=== PATIENT | male | born 1945 | race Caucasian/White ===

== ENCOUNTER 2018-07-21 11:25 | Inpatient (IN) ==
--- NOTE | 2018-07-17 09:15 | Anesthesiology Consultation ---
Date of Service July 17, 2018 Assessment & Plan (1) Encounter for pre-operative examination: Cardio: 12/2017: aware of possible ? retained suture vs. sternal wire exposed at the inferior aspect of his incision.. referred for further evaluation (reason for upcoming procedure). F/U in 6 months recommended. Per cardio, ECHO done 12/2017 (S/P MVR 11/2017) and stress test 08/2017-awaiting reports (Dr. Arzola). History Surgery Operation Date: 07/21/18 11:40 Proposed Procedures p Sternal Wound Debridement, Removal Sternal Wire, Closure with Antibiotic Aishwarya - Darius Saul MD, FACS Height/Weight Height: 5 ft 5.5 in Weight: 81.647 kg Allergies Allergy/AdvReac Type Severity Reaction Status Date / Time niacin Allergy Mild Flushing Verified 07/10/18 13:29 Medications Home Medications Medication Instructions Recorded Confirmed Last Taken aspirin 325 mg tablet 325 mg PO QAM 06/18/18 07/10/18 Unknown atorvastatin 40 mg tablet 40 mg PO QAM 06/18/18 07/10/18 Unknown carvedilol 3.125 mg tablet 3.125 mg PO BID tab 06/18/18 07/10/18 Unknown citalopram 20 mg tablet 20 mg PO QAM 06/18/18 07/10/18 Unknown hydroxychloroquine 200 mg tablet 200 mg PO QAM 06/18/18 07/10/18 Unknown lisinopril 2.5 mg tablet 2.5 mg PO QAM 06/18/18 07/10/18 Unknown multivitamin tablet 1 tab PO QAM 06/18/18 07/10/18 Unknown trazodone 50 mg tablet 50 mg PO HS 06/18/18 07/10/18 Unknown clindamycin HCl 300 mg capsule 300 mg PO tid 20 Days #60 cap 06/22/18 07/09/18 Unknown clindamycin HCl 300 mg capsule 300 mg PO tid 30 Days #90 cap 07/10/18 07/10/18 Unknown hydrocodone 5 mg-acetaminophen 325 1 tab PO Q6H PRN #30 tab 07/15/18 Unknown mg tablet Past Medical History Medical History Anemia Anxiety CAD (coronary atherosclerotic disease) STENTS X ?4 (2011), LENCHO X 2 (2016) COPD (chronic obstructive pulmonary disease) MILD CVA (cerebral vascular accident) 1999 "MILD" Hypercholesteremia Hypertension Kidney stones Mitral valve disease S/P BIOPROSTHETIC MVR (11/11/2017) Non-healing wound CHEST (REASON FOR PROCEDURE) Obstructive sleep apnea NO DEVICE Rheumatoid arthritis Past Family History Family History Brother Family history of diabetes mellitus Past Surgical History Surgical History History of cardiac cath History of cataract surgery RT/LT History of cholecystectomy History of colonoscopy History of esophagogastroduodenoscopy (EGD) + DILATION History of mitral valve replacement 11/2017 History of open reduction and internal fixation (ORIF) procedure RT ANKLE+HARDWARE REMOVAL History of tonsillectomy History of tooth extraction S/P cataract extraction S/P cholecystectomy S/P debridement WOUND VAC TO CHEST INCISION 04/2018 (CURRENTLY OFF) Social History Smoking Status: Former smoker tobacco type: cigarettes Do You Dip or Chew Tobacco: No Smoking End Date: 25 YEARS AGO Hx Alcohol Use: No Hx Substance Use: No substance use type: does not use Testing Laboratory Results 06/19/18 WBC 6.13 H/H 12.7/38.4 PLATELETS 176 06/24/18 SODIUM 136 POTASSIUM 4.1 CHLORIDE 102 CO2 30 BUN 32 CREATININE 1.05 GLUCOSE 133 Electrocardiogram Date: 07/09/18 SR with PAC's at 71bpm. LAD. Inferior infarct (noted as "old" inferior infarct on 11/27/17 EKG). Echocardiogram Date: 07/11/17 "LVEF 55-60%. AoR 2.9cm, PaP 22, DD1, mod-severe MR, mild TR" per 12/2017 carido office visit note (attempting to obtain official report) Stress Test Date: 08/10/17 "EF 52%, moderate inferolateral infarction with moderate oliverio-infarct ischemia. There is a small area of moderate anteroapical infarction, no ischemia" per 12/2017 cardio office visit note (attempting to obtain official report) Cardiac Catheterization Date: 09/26/17 Severe hoopa 2 vessel CAD with significant left CX stenosis, chronic total occlusion of RCA. Patent LAD stents. Severe MR. EF 55%. Other Testing Chest CT: 06/25/18: Central airways patent. Pulmonary arteries are minimally enlarged relative to adjacent bronchi. No interlobular septal thickening. Minimal dependent changes likely atelectasis. Dehiscence of the sternotomy at the level of the fourth costochondral articulation. This may in part be due to a sternotomy wire which traverses the sternotomy plain. At this level, 2.3 cm abscess superficial to the sternal dehiscence. No retrosternal inflammation. Post surgical changes of mitral valve replacement
[~2018-07-21 11:25] MED LIST: LR 15ML/HR IV SCH
[2018-07-21] MEDS ORDERED: GELATIN SPONGE SZ 100 ONE (11:45)
[2018-07-21] MEDS ORDERED: BUPIVACAINE 0.5 % 5 MG/1 ML MPF 30ML VIAL ONE (11:45)
[2018-07-21] MEDS ORDERED: THROMBIN FOR SOLN 20000 UNIT KIT ONE (11:45)
[2018-07-21] MEDS ORDERED: VANCOMYCIN HCL 1000MG/20ML VIAL ONE (11:46)
[2018-07-21] MEDS ORDERED: LIDOCAINE HCL 2% 2 ML VIAL/AMP(20MG/ML) INFIL ONE (12:23)
[2018-07-21] MEDS ORDERED: ONDANSETRON INJ 2 MG/ML 2 ML VIAL ONE (12:23)
[2018-07-21] MEDS ORDERED: fentaNYL citrate 100 MCG/2 ML VIAL ONE ×2 (12:23→14:53)
[2018-07-21] MEDS ORDERED: PROPOFOL IV EMULSION 10 MG/ML 20 ML VIAL IV ONE ×2 (12:23→14:55)
[2018-07-21] MEDS ORDERED: SODIUM CHLORIDE 0.9% PF 50 ML VIAL ONE (13:04)
[2018-07-21] MEDS ORDERED: GENTAMICIN SULFATE 40 MG/ML 2 ML VIAL ONE (13:04)
[2018-07-21] MEDS ORDERED: BUPIVACAINE LIPOSOME 1.3% 266 MG/20 ML VIAL ONE (13:04)
--- NOTE | 2018-07-21 13:04 | History & Physical Bridge Note ---
Date of Service July 21, 2018 History & Physical Bridge Note I have examined the patient, reviewed the History & Physical and in the interval since the performance of the History & Physical I have noted the following changes of clinical significance: no changes noted
[2018-07-21] MEDS ORDERED: MIDAZOLAM HCL 1 MG/ML 2ML VIAL ONE (13:11)
[2018-07-21] MEDS ORDERED: KETAMINE HCL INJ 50 MG/ML 10 ML VIAL ONE (13:12)
[2018-07-21] MEDS ORDERED: CEFAZOLIN 2000MG 2,000 MG/15 ML SYR IV SCH (13:54)
[2018-07-21] MEDS: GENTAMICIN SULFATE 40 MG/ML 2 ML VIAL ONE ×2 (13:55→13:59)
[2018-07-21] MEDS ORDERED: METOCLOPRAMIDE HCL INJ 5 MG/ML 2 ML VIAL IV ONE (14:50)
[2018-07-21] MEDS ORDERED: fentaNYL citrate 100 MCG/2 ML VIAL IV PRN (15:08)
[2018-07-21] MEDS ORDERED: ATROPINE SULFATE 0.1 MG/ML 10ML SYR IV PRN (15:08)
[2018-07-21] MEDS ORDERED: ONDANSETRON INJ 2 MG/ML 2 ML VIAL IV PRN ×2 (15:08→16:45)
[2018-07-21] MEDS ORDERED: ePHEDrine sulfate 50 MG/ML AMP IV PRN (15:08)
[2018-07-21] MEDS ORDERED: HYDROmorphone INJ 1 MG/ML SYRINGE ONE (15:15)
[2018-07-21] MEDS: HYDROmorphone INJ 1 MG/ML SYRINGE IV PRN ×8 (15:16→15:51)
--- NOTE | 2018-07-21 15:23 | Post Operative Brief Note ---
Immediate Post Op Note v1 Date of Surgery July 21, 2018 Pre & Post Diagnosis Operation Date: 07/21/18 13:00 Pre-Op Diagnosis: Sternal Wound Infection Post-Op Diagnosis: Sternal Wound Infection Procedure Operation Date: 07/21/18 13:00 Actual Procedures p Sternal Wound Debridement, Removal Sternal Wire, Closure with Antibiotic Beads(Not Applicable) - Darius Saul MD, FACS Surgeon Darius Saul MD, FACS Mat Packer Valorie ROSARIO, [facility] CCIII Estimated Blood Loss 50 Findings Consistent with Post-Op Diagnosis Drains Other (STEFAN)
--- NOTE | 2018-07-21 15:34 | Anesthesiology Progress Note ---
Date of Service July 21, 2018 Anesthesia Post Procedure Vital Signs Vital Signs: Temp Pulse Pulse Resp BP Pulse Ox 07/21/18 15:25 74 16 132/79 95 07/21/18 15:15 76 16 107/68 95 07/21/18 15:05 82 21 126/86 100 07/21/18 14:55 83 17 132/94 100 07/21/18 14:47 36 C L 84 15 143/96 H 100 07/21/18 11:57 36.6 C 83 18 161/79 H 97 Pain Intensity Upper Medial Chest: Pain Intensity: 5 Transfer of Care Handoff Completed per policy Notes Mental Status: alert / awake / arousable and participated in evaluation Patient Amnestic to Procedure: Yes Nausea / Vomiting: adequately controlled Pain: adequately controlled Airway Patency, RR, SpO2: stable & adequate BP & HR: stable & adequate Hydration State: stable & adequate Anesthetic Complications: no major complications apparent and Pt Satisfied with anesthetic care
--- NOTE | 2018-07-21 15:58 | XRay Report ---
XR chest 1V portable HISTORY: 73 years-old Male sternal debridement COMPARISON: Chest CT 06/25/2018 TECHNIQUE: Portable AP view of the chest FINDINGS: Cardiac silhouette is enlarged, unchanged. Prior median sternotomy with removal of the lower three st ernotomy wires. The superior three sternotomy wires remain. Cardiomegaly with prosthetic mitral valve . No pneumothorax or large pleural effusion. Chronic right hemidiaphragmatic elevation. Lung crocker a ppear clear. No overt pulmonary edema. 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 Degenerative changes of the shoulders and spi ne. IMPRESSION: 1. Status post removal of the lower three sternotomy wires. 2. Cardiomegaly without overt pulmonary edema. 3. Unchanged right hemidiaphragmatic elevation. 4. No pneumothorax. The above report was generated using voice recognition software. It may contain grammatical, syntax o r spelling errors. Electronically signed by: Ernesto Loving M.D. 07/21/2018 3:57 PM
[2018-07-21] MEDS ORDERED: MoRPHine SULFATE 2 MG/ML CARP IV PRN (16:45)
[2018-07-21] MEDS ORDERED: TRAZODONE HCL 50 MG TAB PO SCH (21:00)
[2018-07-21] MEDS: ACETAMINOPHEN 1,000 MG/100 ML VIAL IV SCH (21:02)
[2018-07-21] MEDS: CARVEDILOL 3.125 MG TAB PO SCH (21:03)
[2018-07-21] MEDS: METOCLOPRAMIDE HCL INJ 5 MG/ML 2 ML VIAL IV SCH (21:03)
[2018-07-21] MEDS: CLINDAMYCIN HCL 150 MG CAP PO SCH (21:03)
[2018-07-21] MEDS: DOCUSATE SODIUM 100 MG CAP PO SCH (21:04)
--- NOTE | 2018-07-21 22:21 | Operative Report ---
DATE OF OPERATION: 07/21/2018 DATE OF PROCEDURE: 07/21/2018 PREOPERATIVE DIAGNOSIS: Sternal osteomyelitis. POSTOPERATIVE DIAGNOSIS: Sternal osteomyelitis. PROCEDURE: 1. Sternal debridement with removal of wires x3. 2. Implantation of calcium sulfate beads impregnated with antibiotics with primary closure. SURGEON: Darius Saul MD CREATIVE SERVICES INTERN: ABRAHAM Henry and ashlyn Chu 3. ANESTHESIA: Sedation with local using Exparel mixed with Bupivacaine and saline. INDICATION FOR PROCEDURE AND FINDINGS: This is a 73-year-old male who underwent open heart surgery in November 2017 and developed a wound infection. He has had drainage and has actually been taken back and debrided on couple of occasions. He was referred to me after he was evaluated here at the wound center at [place] and I felt that appropriate action would be to remove the sternal wires and implant antibiotic beads. On 07/21/2018, patient was brought to the operating room and underwent uncomplicated opening of his incision. A 12 cm incision was made in the midline. I cut away some of the grossly infected tissues. It should be noted that the patient had another draining sinus, which had risen in the last week inferior to his original. Beginning down to the sternal wire, I cut and removed 3 of them. I then debrided aggressively on the anterior table and then cut down to a large bone, I stopped. Meticulous hemostasis obtained. We irrigated out and I placed 10 mL of Stimulan purified calcium sulfate product mixed with 480 mg of gentamicin and 1 gram of vancomycin. These beads were then used to implant along the sternum and fill the spaces. We then closed the patient primarily without a drain, but we did place a STEFAN dressing over the top. He tolerated it well. PROCEDURE: The patient was brought to the operating room and laid in supine position. IV sedation was given. He was prepped and draped in usual sterile fashion. A long needle with 266 mg of Exparel and 20 mL, mixed with 30 mL of bupivacaine and 100 mL of normal saline were then used with a long needle to do a field block and a fairly long and deepened filtration of this solution surrounding the wound within the mid portion of the sternum below the angle of Js. The main incision longitudinally, but included the 2 areas that were open and took this down to the sternum. The tissue appeared very healthy and bled well. Bovie electrocautery was used to control bleeding. I then opened this down and removed some of the more exuberant reactive tissue. I then removed three sternal wires by cutting and removing it. The bone itself appeared to be relatively stable, although I debrided some of the deeper subcutaneous tissues and some of the bone anteriorly. It appeared to be rather stable. I achieved meticulous hemostasis and then the 10 mL of pharmaceutical grade calcium sulfate from [employer] was mixed with 1 gram of vancomycin and 480 mg of gentamicin. When this formed a putty like consistency, it was placed in the mold. When the beads had set, the mold was bent and the beads removed. These beads were implanted and closed in 2 layers and then vertical mattress skin sutures placed and the STEFAN placed, the wound looked quite good. He tolerated it well. He was transferred back to the postanesthesia care unit in stable condition. DICTATION ENDS HERE I attest to the content of the Intraoperative Record and any orders documented therein. Any exceptions are noted below. KARINA
[2018-07-21] MEDS: OXYCODONE HCL IR 5 MG TAB (IMMEDIATE RELEASE) PO PRN (23:49)
[2018-07-22] MEDS: ACETAMINOPHEN 1,000 MG/100 ML VIAL IV SCH (05:33)
[2018-07-22] MEDS: METOCLOPRAMIDE HCL INJ 5 MG/ML 2 ML VIAL IV SCH (05:33)
[2018-07-22] MEDS: OXYCODONE HCL IR 5 MG TAB (IMMEDIATE RELEASE) PO PRN (05:40)
[2018-07-22 07:25] LABS: Hemoglobin 12.9 g/dL (14.0-18.0); Mean Corpuscular Hgb Conc 34.9 g/dL (32-36); Mean Corpuscular Volume 85.6 fL (80-100); Mean Platelet Volume 10.3 fL (7.4-10.4); Platelet Count 143 K/uL (130-400); RDW Coefficient of Variation 15.4 % (11.5-14.5); RDW Standard Deviation 48.6 fL (36.4-46.3); Red Blood Count 4.32 M/uL (4.7-6.1); White Blood Count 7.34 K/uL (4.8-10.8)
[2018-07-22 07:45] LABS: INR 1.1 (0.9-1.1); Partial Thromboplastin Ratio 0.9; Partial Thromboplastin Time 24.5 Seconds (21.0-31.0); Prothrombin Time 11.4 Seconds (9.0-12.0)
[2018-07-22] MEDS ORDERED: ENOXAPARIN INJ 40 MG/0.4 ML SYR SQ SCH (09:00)
[2018-07-22] MEDS ORDERED: ASPIRIN 325 MG ECTAB PO SCH (09:00)
[2018-07-22] MEDS ORDERED: HYDROXYCHLOROQUINE SULFATE 200 MG TAB PO SCH (09:00)
[2018-07-22] MEDS ORDERED: MULTIVITAMIN TAB PO SCH (09:00)
[2018-07-22] MEDS ORDERED: ATORVASTATIN 40 MG TAB PO SCH (09:00)
[2018-07-22] MEDS ORDERED: CITALOPRAM 20 MG TAB PO SCH (09:00)
[2018-07-22] MEDS ORDERED: LISINOPRIL 2.5 MG TAB PO SCH (09:00)
[2018-07-22] MEDS: CLINDAMYCIN HCL 150 MG CAP PO SCH (09:25)
[2018-07-22] MEDS: CARVEDILOL 3.125 MG TAB PO SCH (09:26)
[2018-07-22] MEDS: DOCUSATE SODIUM 100 MG CAP PO SCH (09:28)
--- NOTE | 2018-07-22 12:43 | Anesthesiology Progress Note ---
Date of Service July 22, 2018 Anesthesia Post Procedure Vital Signs Vital Signs: Temp Pulse Pulse Resp BP BP Pulse Ox 07/22/18 09:24 77 129/77 07/22/18 07:45 36.6 C 76 20 132/84 95 07/22/18 03:26 36.5 C 71 18 107/51 L 93 07/21/18 23:58 36.5 C 76 18 109/70 93 07/21/18 19:15 36.6 C 78 17 147/70 H 93 07/21/18 18:28 36.5 C 75 17 129/83 95 07/21/18 17:21 36.4 C L 70 17 128/78 95 07/21/18 17:14 36.8 C 71 18 123/76 07/21/18 16:05 36.5 C 79 15 129/75 96 07/21/18 15:55 36.5 C 82 14 121/73 96 07/21/18 15:45 70 14 113/81 96 07/21/18 15:35 66 12 115/71 96 07/21/18 15:25 74 16 132/79 95 07/21/18 15:15 76 16 107/68 95 07/21/18 15:05 82 21 126/86 100 07/21/18 14:55 83 17 132/94 100 07/21/18 14:47 36 C L 84 15 143/96 H 100 Pulse Ox 07/22/18 09:24 07/22/18 07:45 07/22/18 03:26 07/21/18 23:58 07/21/18 19:15 07/21/18 18:28 07/21/18 17:21 07/21/18 17:14 98 07/21/18 16:05 07/21/18 15:55 07/21/18 15:45 07/21/18 15:35 07/21/18 15:25 07/21/18 15:15 07/21/18 15:05 07/21/18 14:55 07/21/18 14:47 Notes Mental Status: alert / awake / arousable and participated in evaluation Nausea / Vomiting: adequately controlled Pain: adequately controlled Airway Patency, RR, SpO2: stable & adequate BP & HR: stable & adequate Hydration State: stable & adequate Anesthetic Complications: no major complications apparent Notes: patient D/C home. Discussed patient status with Dr. Saul and Scott Gill. Patient had no apparent anesthesia complications following procedure. Hospital stay uneventful.
--- NOTE | 2018-07-24 08:02 | Coding Query ---
CODING QUERY To promote full compliance with coding requirements relating to patient care, provider participation is requested in all cases of ged preparation teacher uncertainty. Please assist us with the question(s) below: Coding Question(s): The H&P documents chronic localized sternal osteomyelitis postoperatively. Please clarify below, in your clinical opinion, regarding the chronic localized sternal osteomyelitis. ( X ) Chronic localized sternal osteomyelitis is likely a postoperative complication ( ) Chronic localized sternal osteomyelitis is Not likely a postoperative complication Physician's Response(s): Thank you Noemi Sheehan Principal Diagnosis: "that condition established after study, to be chiefly responsible for occasioning the admission of the patient to the hospital for care." Co-Existing Principal Diagnosis: "when two or more diagnoses equally meet the criteria for principal diagnosis as determined by the circumstances of admission, diagnostic work up, and/or therapy provided, and the Alphabetic Index, Tabular List, or another coding guideline does not provide sequencing direction, any one of the diagnoses may be sequenced first." "When the physician has documented what appears to be a current diagnosis in the body of the record, but has not included the diagnosis in the final diagnostic statement, the physician should be asked whether the diagnosis should be added." (Source Coding Clinic 2 QTR90. p3-4) KARINA
--- NOTE | 2018-07-30 15:15 | Discharge Summary ---
DISCHARGE DIAGNOSES: 1. Chronic sternal wound infection. 2. Status post midline sternotomy for open heart surgery 11/2017. HOSPITAL COURSE: Mr. Lizarraga is a 73-year-old who was operated on November and developed a draining sinus from his mid sternum. CT scan was obtained which showed he does not have any evidence of mediastinitis radiographically or clinically for that matter. He does have chest pain and he is quite anxious about this chronic draining wound. He is referred to the office and I felt that removing his sternal wires which were probably involved and also planning antibiotic beads would be helpful. On 07/21/2018 I took the patient to the operating room and removed 3 of the lower sternal wires. His sternum was intact. I did debride some of the anterior table. We packed him with antibiotic beads. These were purified calcium sulfate beads impregnated with vancomycin and gentamicin and then we closed over completely. We placed a STEFAN dressing over this. The patient tolerated it very well. Pain was better, although he still had pain and mostly the patient was very concerned about the wound. He looked very good the next day and we discharged him. I will be keeping a close eye on him. We will see him back in the office next week.
== END 2018-07-22 11:15 | disposition home or self-care (01) | DRG 857 ==
LOC: ASU 11:25 → 3N 15:27

== ENCOUNTER 2018-08-17 06:20 | Inpatient (IN) ==
--- NOTE | 2018-08-12 10:30 | Anesthesiology Consultation ---
Date of Service August 12, 2018 Assessment & Plan (1) Encounter for pre-operative examination: Chart Review Chart Review: Acceptable Risk for Surgery and Patient NOT seen in Pre Admission Testing History Surgery Operation Date: 08/17/18 07:30 Proposed Procedures p Sternal Wound Debridement - Darius Saul MD, FACS Height/Weight Height: 5 ft 5.5 in Weight: 81.647 kg Allergies Allergy/AdvReac Type Severity Reaction Status Date / Time niacin Allergy Mild Flushing Verified 08/11/18 14:22 Medications Home Medications Medication Instructions Recorded Confirmed Last Taken aspirin 325 mg tablet 325 mg PO QAM 06/18/18 08/11/18 07/20/18 08:00 atorvastatin 40 mg tablet 40 mg PO QAM 06/18/18 08/11/18 07/20/18 08:00 carvedilol 3.125 mg tablet 3.125 mg PO BID tab 06/18/18 08/11/18 07/20/18 08:00 hydroxychloroquine 200 mg tablet 200 mg PO QAM 06/18/18 08/11/18 07/20/18 08:00 lisinopril 2.5 mg tablet 2.5 mg PO QAM 06/18/18 08/11/18 07/20/18 08:00 multivitamin tablet 1 tab PO QAM 06/18/18 08/11/18 07/20/18 08:00 trazodone 50 mg tablet 50 mg PO HS 06/18/18 08/11/18 07/20/18 21:00 clindamycin HCl 300 mg capsule 300 mg PO tid 30 Days #90 cap 07/10/18 08/11/18 07/20/18 18:00 tramadol [Ultram] 50 mg PO QID PRN #15 tab 07/21/18 08/11/18 Unknown nitroglycerin 0.4 mg sublingual 0.4 mg SL Q5M PRN #10 tab 07/23/18 08/11/18 Unknown tablet ferrous sulfate 325 mg (65 mg 325 mg PO DAILY #90 tab 07/24/18 08/11/18 Unknown iron) tablet citalopram 20 mg tablet 20 mg PO QAM #90 tab 08/03/18 08/11/18 Unknown hydrocodone 5 mg-acetaminophen 325 1 tab PO Q6H PRN #30 tab 08/10/18 08/11/18 Unknown mg tablet furosemide 20 mg PO QAM 08/11/18 08/11/18 Unknown Past Medical History Medical History Anemia Anxiety CAD (coronary atherosclerotic disease) STENTS X ?4 (2011), LENCHO X 2 (2016) COPD (chronic obstructive pulmonary disease) MILD CVA (cerebral vascular accident) 1999 "MILD" Hypercholesteremia Hypertension Kidney stones Mitral valve disease S/P BIOPROSTHETIC MVR (11/11/2017) Non-healing wound CHEST (REASON FOR PROCEDURE) Obstructive sleep apnea NO DEVICE Rheumatoid arthritis Past Family History Family History Brother Family history of diabetes mellitus Past Surgical History Surgical History History of cardiac cath History of cataract surgery RT/LT History of cholecystectomy History of colonoscopy History of esophagogastroduodenoscopy (EGD) + DILATION History of mitral valve replacement 11/2017 History of open reduction and internal fixation (ORIF) procedure RT ANKLE+HARDWARE REMOVAL History of tonsillectomy History of tooth extraction S/P cholecystectomy S/P debridement WOUND VAC TO CHEST INCISION 04/2018 (CURRENTLY OFF) S/P debridement 07/21/18 Dr. Darius Saul Sternal debridement with removal x 3 wires and placement of abx beads Social History Smoking Status: Never smoker tobacco type: cigarettes Do You Dip or Chew Tobacco: No Hx Alcohol Use: No Hx Substance Use: No substance use type: does not use Testing Laboratory Results 07/22/18 WBC: 7.34 H/H: 12.9/37.0 PLATELETS: 143 PT: 11.4 PTT: 24.5 INR: 1.1 06/24/18 SODIUM: 136 POTASSIUM: 4.1 CHLORIDE: 102 CO2: 30 BUN: 32 CREATININE: 1.07 GLUCOSE: 133 Electrocardiogram Date: 07/09/18 Findings: + NSR @ (72 with PACs) Left axis deviation. Inferior infarct, age undetermined. Compared with EKG of 07/06/2003, PACs are now present, inferior infarct is now present, nonspecific change in ST segment in anterior leads. *inferior infarct also noted, as "old inferior infarct," on outside EKG from 11/25/17 (scanned to chart). Chest X-Ray Date: 07/21/18 IMPRESSION: 1. Status post removal of the lower three sternotomy wires. 2. Cardiomegaly without overt pulmonary edema. 3. Unchanged right hemidiaphragmatic elevation. 4. No pneumothorax. Echocardiogram Date: 12/24/17 EF: 42% Nondilated left ventricle with segmental abnormalities as described above and mildly decreased systolic function. Wall thickness is increased consistent with borderline LVH. The calculate a left ventricular ejection fraction is 42%. Paradoxical septal motion consistent with postoperative septal motion. Normal RV size. The right ventricle is moderately decreased function. Thickened and calcified aortic valve. There is a bioprosthesis in the mitral position. Mitral valve mean gradient is 5 mmHg. Mild left atrial enlargement. Grade 1 diastolic dysfunction. Stress Test Date: 09/03/17 Type: nuclear Abnormal regadenoson SPECT myocardial perfusion study. There is a moderate area of moderate inferolateral infarction, with moderate oliverio-infarct ischemia. There is a small area of moderate anteroapical infarction, no ischemia. Resting EF of 48%, poststress EF was 52%. *Pt had subsequent cardiac cath 09/26/17 (see below). Cardiac Catheterization Date: 09/26/17 Intervention: + none Severe [place] 2 vessel CAD with significant left CX stenosis, chronic total occlusion of RCA. Patent LAD stents. Severe MR. EF 55%.
[2018-08-17] MEDS ORDERED: ONDANSETRON INJ 2 MG/ML 2 ML VIAL IV PRN ×2 (06:58→10:50)
[2018-08-17] MEDS ORDERED: LABETALOL HCL IV 5 MG/ML 20ML IV PRN (06:58)
[2018-08-17] MEDS ORDERED: MEPERIDINE HCL 25 MG/ML CARP IV PRN (06:58)
[2018-08-17] MEDS ORDERED: PHENYLEPHRINE 100MCG/ML 5ML SYR IV PRN (06:58)
[2018-08-17] MEDS ORDERED: ePHEDrine sulfate 50 MG/ML AMP IV PRN (06:58)
[2018-08-17] MEDS ORDERED: ATROPINE SULFATE 0.1 MG/ML 10ML SYR IV PRN (06:58)
[2018-08-17] MEDS ORDERED: GELATIN SPONGE SZ 100 ONE (07:00)
[2018-08-17] MEDS ORDERED: THROMBIN FOR SOLN 20000 UNIT KIT ONE (07:00)
[2018-08-17] MEDS ORDERED: LIDOCAINE HCL 2% 2 ML VIAL/AMP(20MG/ML) INFIL ONE (07:07)
[2018-08-17] MEDS ORDERED: fentaNYL citrate 100 MCG/2 ML VIAL ONE ×2 (07:07→08:27)
[2018-08-17] MEDS ORDERED: PHENYLEPHRINE 100MCG/ML 5ML SYR ONE (07:07)
[2018-08-17] MEDS ORDERED: MIDAZOLAM HCL 1 MG/ML 2ML VIAL ONE (07:07)
[2018-08-17] MEDS ORDERED: PROPOFOL IV EMULSION 10 MG/ML 20 ML VIAL IV ONE (07:07)
[2018-08-17] MEDS ORDERED: ePHEDrine sulfate 50 MG/ML SYR ONE (07:07)
--- NOTE | 2018-08-17 07:19 | History & Physical Bridge Note ---
Date of Service August 17, 2018 History & Physical Bridge Note I have examined the patient, reviewed the History & Physical and in the interval since the performance of the History & Physical I have noted the following changes of clinical significance: no changes noted
[2018-08-17] MEDS ORDERED: SODIUM CHLORIDE 0.9% PF 50 ML VIAL ONE (07:22)
[2018-08-17] MEDS ORDERED: BUPIVACAINE LIPOSOME 1.3% 266 MG/20 ML VIAL ONE (07:22)
[2018-08-17] MEDS ORDERED: GENTAMICIN SULFATE 40 MG/ML 2 ML VIAL ONE ×2 (07:22→08:46)
[2018-08-17] MEDS ORDERED: BUPIVACAINE 0.5 % 5 MG/1 ML MPF 30ML VIAL ONE (07:22)
[2018-08-17] MEDS ORDERED: VANCOMYCIN HCL 1000MG/20ML VIAL ONE ×2 (07:23→08:46)
[2018-08-17] MEDS ORDERED: ONDANSETRON INJ 2 MG/ML 2 ML VIAL ONE (07:58)
[2018-08-17] MEDS ORDERED: SUCCINYLCHOLINE CHLORIDE 20 MG/ML 10 ML VIAL ONE (07:58)
[2018-08-17] MEDS ORDERED: ROCURONIUM BROMIDE 10 MG/ML 5 ML VIAL ONE (07:59)
[2018-08-17] MEDS ORDERED: NEOSTIGMINE METHYLSULFATE 5 MG/5 ML SYR ONE (07:59)
[2018-08-17] MEDS ORDERED: GLYCOPYRROLATE 0.2 MG/ML VIAL ONE (07:59)
[2018-08-17] MEDS ORDERED: CEFAZOLIN 250 MG/ML 1 GM VIAL ONE (08:02)
[2018-08-17] MEDS ORDERED: LARYING-O-JET KIT (LTA) ONE (08:18)
--- NOTE | 2018-08-17 09:08 | Post Operative Brief Note ---
Immediate Post Op Note v1 Date of Surgery August 17, 2018 Pre & Post Diagnosis Operation Date: 08/17/18 07:30 Pre-Op Diagnosis: Sternal Wound Infection Post-Op Diagnosis: Infected pacing wires; sternal osteomyelitis Procedure Operation Date: 08/17/18 07:30 Actual Procedures p Bony Sternal Wound Debridement with Implantation of Antibiotic Beads(Not Applicable) - Darius Saul MD, FACS Surgeon Darius Saul MD, FACS Hose Seamer [facility] CCIII Estimated Blood Loss 20 Findings Consistent with Post-Op Diagnosis Drains Ocatvio-Moreira Drain (19F x2)
[2018-08-17] MEDS ORDERED: METOCLOPRAMIDE HCL INJ 5 MG/ML 2 ML VIAL ONE (09:27)
[2018-08-17] MEDS ORDERED: METOCLOPRAMIDE HCL INJ 5 MG/ML 2 ML VIAL IV ONE (09:34)
[2018-08-17] MEDS: fentaNYL citrate 100 MCG/2 ML VIAL IV PRN ×4 (09:44→10:01)
--- NOTE | 2018-08-17 09:48 | XRay Report ---
SINGLE VIEW CHEST CLINICAL HISTORY: Status post sternal debridement. FINDINGS: An AP, portable, upright chest radiograph is compared to study dated 07/21/2018 and correlat ed with chest CT dated 06/25/2018. The examination is degraded by portable technique and patient rotat ion. Midline skin clips and a midline surgical drain are noted. Small round densities projecting over the right mediastinum likely represent antibiotic implants. A drain also projects over the left uppe r quadrant of the abdomen. A single midline sternotomy wire remains. There is evidence of previous ca rdiac valve surgery. The heart is enlarged and there is atherosclerotic calcification of the thoracic aorta. The pulmonary vasculature is noncongested. There are low lung volumes with bibasilar atelecta sis. No airspace consolidation or large pleural effusion is identified. No pneumothorax is seen. The skeletal structures are osteopenic. 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 Cholecystectomy clips are noted. IMPRESSION: 1. Postoperative findings as above. 2. Cardiomegaly without radiographic evidence of congestive failure. 3. Low lung volumes with no airs pace consolidation or large pleural effusion identified. Electronically signed by: nErique Connolly M.D. 08/17/2018 9:47 AM
--- NOTE | 2018-08-17 10:13 | Anesthesiology Progress Note ---
Date of Service August 17, 2018 Anesthesia Post Procedure Vital Signs Vital Signs: Temp Pulse Pulse Resp BP Pulse Ox 08/17/18 10:00 69 14 118/78 95 08/17/18 09:50 70 21 128/82 95 08/17/18 09:40 74 21 141/83 H 100 08/17/18 09:30 82 22 156/85 H 100 08/17/18 09:24 36.5 C 64 21 152/79 H 100 08/17/18 06:45 36.6 C 71 18 139/97 98 Pain Intensity Medial Chest: Pain Intensity: 2 Transfer of Care Handoff Completed per policy Notes Mental Status: alert / awake / arousable Patient Amnestic to Procedure: Yes Nausea / Vomiting: adequately controlled Pain: adequately controlled Airway Patency, RR, SpO2: stable & adequate BP & HR: stable & adequate Hydration State: stable & adequate Anesthetic Complications: no major complications apparent and Pt Satisfied with anesthetic care Notes: The patient is awake and stable.
[2018-08-17] MEDS ORDERED: NITROGLYCERIN SL 0.4 MG/TAB TAB SL PRN (10:50)
[2018-08-17] MEDS: MoRPHine SULFATE 2 MG/ML CARP IV PRN ×3 (11:36→22:50)
[2018-08-17] MEDS: ACETAMINOPHEN 1,000 MG/100 ML VIAL IV SCH ×2 (12:42→21:04)
[2018-08-17] MEDS: D5W AND 1/2NSS 1,000 ML IV SCH (13:13)
[2018-08-17] MEDS: CLINDAMYCIN HCL 150 MG CAP PO SCH ×2 (13:13→21:05)
[2018-08-17] MEDS: OXYCODONE HCL IR 5 MG TAB (IMMEDIATE RELEASE) PO PRN ×2 (15:58→19:36)
[2018-08-17] MEDS: METOCLOPRAMIDE HCL INJ 5 MG/ML 2 ML VIAL IV SCH (18:15)
[2018-08-17] MEDS: DOCUSATE SODIUM 100 MG CAP PO SCH (21:06)
[2018-08-17] MEDS: TRAZODONE HCL 50 MG TAB PO SCH (21:06)
[2018-08-17] MEDS: CARVEDILOL 3.125 MG TAB PO SCH (21:06)
--- NOTE | 2018-08-17 23:44 | Operative Report ---
DATE OF OPERATION: 08/17/2018 PREOPERATIVE DIAGNOSES: Postoperative sternotomy, osteomyelitis. POSTOPERATIVE DIAGNOSES: 1. Postoperative sternotomy, osteomyelitis. 2. Apparent infection of pacing wires. PROCEDURE PERFORMED: 1. Bony debridement of sternum. 2. Removal of all pacing wires and 2 sternal wires. 3. Implantation of calcium sulfate beads impregnated with vancomycin and gentamicin. SURGEON: Darius Saul MD SLASHER MACHINE OPERATOR: ABRAHAM Herny (Mr. Pinedo was present for the entire case and was instrumental in first assisting), also ashlyn Rodrigez 3. ANESTHESIA: General anesthesia with endotracheal intubation. INDICATION FOR PROCEDURE AND FINDINGS: Margarito Lizarraga is a 73-year-old who underwent open heart surgery for valve replacement in November of 2017. He, soon after surgery began draining from his chest and was found to have a mid sternal incision with apparent osteomyelitis for which he has been treated for the couple of minor debridements, but has not responded. He presented to me. It appeared to me from the CT and on physical exam that he probably had an infected sternal wire. On 07/21/2018, I brought in the patient to the operating room and removed 3 sternal wires and debrided him and it looked quite good to me and I implanted antibiotic beads and closed. He looked quite good postoperatively. Then I saw him in the office last week and he had started draining again. I was a bit disappointed in this, so I brought him back to the operating room today and upon opening his chest, sternum looked fairly good, although I did aggressively debride the lower portion of it removing bone and cartilage. However, I came upon a pus pocket inferiorly and this appeared to be below the fascia and with surrounding pacer wires. I removed his atrial and ventricular pacing wires without difficulty. I also removed 2 out of the last 3 sternal wires. I did not dissect out the superior most manubrial wire, but the process did not appear to be this high. We then closed him after freeing up the pectoralis bed on either side. This came together under no tension. I did implant calcium sulfate beads impregnated with the gentamicin and vancomycin. We placed it deep in the sternum as well as in the superficial layer. Clips were used to close them. He tolerated it quite well. DESCRIPTION OF PROCEDURE: The patient was brought to the operating room and laid in supine position. General anesthesia was induced and endotracheal intubation was performed with a single lumen tube. The patient was then given prophylactic antibiotics and after appropriate timeout had been called, I opened up his old incision. I actually open this up wider almost the entire sternal incision, although not quite as far superiorly, but I went down into the linea alba inferiorly. I then closely inspected the sternum, it appeared to be fairly intact. I really could not get into to an area that was obviously infected, but I did debride this aggressively with a curette, then I removed some of the cartilage and some of the bone in the lower sternum with a rongeur and a curette. This appeared to be clean and healthy. Bleeding was controlled with an Aquamantys and cautery. I did use cautery to open up and to pull some of the pectoralis muscle off of the manubrium and sternum in both directions. Upon cleaning up the linea alba along the left side, I came upon a pocket of pus which I cultured. I then cleaned this out and used a curette and when I did I noted that there were pacing wires here. I removed these pacing wires by putting traction on them gradually and they both gave way. I then debrided this entire area with a curette and cut away any abnormal tissue. It looked quite good at the conclusion. I then debrided along the right side and I came upon another set of pacing wires. These did not have pus around them, but I removed them anyway. I then used a pulse lavage to irrigate out the entire area and got meticulous hemostasis with the Aquamantys. Coming up top, I was debriding and noted 2 pacing wires which I removed. I did not see the 3rd pacing wire but it was well incorporated. After I debrided this rather aggressively and saw no other affected areas, I mixed 20 mL of Stimulan with 2 grams of vancomycin and 640 mg of gentamicin. I placed these beads to cover all the defects in the sternum and the costochondral area as well as under both flaps. I then placed a Octavio-Moreira drain that came out the left inframammary area, but went to both sides. I then used 0 Vicryl in an interrupted fashion to reapproximate the subcutaneous tissues and the pectoralis muscle over the wound. I then placed antibiotic beads in the superficial incision. We used skin clips to reapproximate the skin edges. A nylon suture was used to hold the Octavio-Moreira drain in place. Prior to closing the skin, I used Exparel 266 mg in 20 mL of solution mixed with 30 mL of 0.5% bupivacaine and 250 mL of normal saline and injected liberally around the entire incision surrounding it for essentially a block. We then put antimicrobial dressings on the patient. After closing him, he awakened with very little in the way of pain. I attest to the content of the Intraoperative Record and any orders documented therein. Any exception s are noted below.
[2018-08-18] MEDS: D5W AND 1/2NSS 1,000 ML IV SCH (00:17)
[2018-08-18] MEDS: MoRPHine SULFATE 2 MG/ML CARP IV PRN ×4 (00:19→23:24)
[2018-08-18] MEDS: METOCLOPRAMIDE HCL INJ 5 MG/ML 2 ML VIAL IV SCH (02:10)
[2018-08-18] MEDS: ACETAMINOPHEN 1,000 MG/100 ML VIAL IV SCH (04:08)
[2018-08-18] MEDS: OXYCODONE HCL IR 5 MG TAB (IMMEDIATE RELEASE) PO PRN ×3 (06:29→19:52)
[2018-08-18 06:51] LABS: Hematocrit (blood only) 36.5 % (42-52); Hemoglobin 11.9 g/dL (14.0-18.0); Mean Corpuscular Hgb Conc 32.6 g/dL (32-36); Mean Corpuscular Volume 87.1 fL (80-100); Mean Platelet Volume 10.4 fL (7.4-10.4); Platelet Count 175 K/uL (130-400); RDW Coefficient of Variation 14.4 % (11.5-14.5); RDW Standard Deviation 45.3 fL (36.4-46.3); Red Blood Count 4.19 M/uL (4.7-6.1); White Blood Count 7.67 K/uL (4.8-10.8)
[2018-08-18 07:08] LABS: Creatinine Clr Calc Pharmacy 72.2 ml/min; Est GFR (African American) 94.7; Est GFR (Non-African American) 81.7
[2018-08-18 07:18] LABS: INR 1.1 (0.9-1.1); Partial Thromboplastin Ratio 0.9; Partial Thromboplastin Time 25.1 Seconds (21.0-31.0)
--- NOTE | 2018-08-18 07:52 | Anesthesiology Progress Note ---
Date of Service August 18, 2018 Anesthesia Post Procedure Vital Signs Vital Signs: Temp Pulse Pulse Pulse Resp BP Pulse Ox 08/18/18 06:56 36.7 C 77 16 127/77 94 08/18/18 06:30 36.8 C 72 18 145/70 H 94 08/18/18 02:30 36.6 C 75 16 118/69 92 08/17/18 22:24 36.8 C 79 18 119/71 93 08/17/18 21:09 90 127/72 08/17/18 20:44 36.6 C 87 17 131/73 93 08/17/18 18:28 36.4 C L 90 18 120/70 94 08/17/18 16:46 36.8 C 77 17 134/74 95 08/17/18 13:22 36.5 C 63 18 135/83 96 08/17/18 12:36 36.6 C 76 16 151/80 H 76 L 08/17/18 11:34 36.6 C 69 18 136/84 97 08/17/18 11:09 36.6 C 69 18 118/67 97 08/17/18 10:30 36.6 C 68 16 129/83 96 08/17/18 10:15 36.6 C 65 15 122/67 96 08/17/18 10:00 69 14 118/78 95 08/17/18 09:50 70 21 128/82 95 08/17/18 09:40 74 21 141/83 H 100 08/17/18 09:30 82 22 156/85 H 100 08/17/18 09:24 36.5 C 64 21 152/79 H 100 Pain Intensity Medial Chest: Pain Intensity: 7 Notes Mental Status: alert / awake / arousable and participated in evaluation Patient Amnestic to Procedure: Yes Nausea / Vomiting: adequately controlled Pain: adequately controlled Airway Patency, RR, SpO2: stable & adequate BP & HR: stable & adequate Hydration State: stable & adequate Anesthetic Complications: no major complications apparent and Pt Satisfied with anesthetic care
[2018-08-18] MEDS ORDERED: VANCOMYCIN CONSULT ACTIVE PRN (08:19)
[2018-08-18] MEDS: CITALOPRAM 20 MG TAB PO SCH (08:32)
[2018-08-18] MEDS: HYDROXYCHLOROQUINE SULFATE 200 MG TAB PO SCH (08:33)
[2018-08-18] MEDS: ATORVASTATIN 40 MG TAB PO SCH (08:33)
[2018-08-18] MEDS: LISINOPRIL 2.5 MG TAB PO SCH (08:33)
[2018-08-18] MEDS: CARVEDILOL 3.125 MG TAB PO SCH ×2 (08:33→20:59)
[2018-08-18] MEDS: ASPIRIN 325 MG ECTAB PO SCH (08:33)
[2018-08-18] MEDS: DOCUSATE SODIUM 100 MG CAP PO SCH ×2 (08:33→20:57)
[2018-08-18] MEDS: MULTIVITAMIN TAB PO SCH (08:33)
[2018-08-18] MEDS: ENOXAPARIN INJ 40 MG/0.4 ML SYR SQ SCH (08:34)
[2018-08-18] MEDS ORDERED: VANCOMYCIN HCL 2,000 MG in SODIUM CHLORIDE 0.9% 500 ML IV ONE (09:00)
--- NOTE | 2018-08-18 09:06 | Pharmacy Report ---
Pharmacy Abx Initial Consult - Date of Service August 18, 2018 - Pharmacy Dosing Scope Date of Consult: 08/18 Consultation requested by: Syed Pinedo PA-C Pharmacy is consulted to initiate vancomycin IV/PO dosing therapy, order appropriate labs and adjust drug dose/frequency. - Subjective The patient is a 73 year old M admitted on 08/17/18 09:21. - Objective Height: 5 ft 5.5 in Weight: 83.7 kg Vital Signs (Past 12hrs): Vital Signs Temp Pulse Pulse Pulse Resp BP Pulse Ox 08/18/18 06:56 36.7 C 77 16 127/77 94 08/18/18 06:30 36.8 C 72 18 145/70 H 94 08/18/18 02:30 36.6 C 75 16 118/69 92 08/17/18 22:24 36.8 C 79 18 119/71 93 08/17/18 21:09 90 127/72 Lab Results (24hrs): Laboratory Tests (24 Hours) 08/18/18 08/18/18 06:32 06:32 WBC 7.67 Creatinine 0.93 Est Cr Clr Drug Dosing 72.2 Micro Results: 08/17/18 Unknown Gram Stain - Final Chest Aerobic and Anaerobic Culture - Pending - Risk Factors for Resistance * History of infection with a multidrug-resistant organism: MRSA- chest 06-18-18 * Antimicrobial use within the last 90 days Clindamycin - Assessment & Plan Assessment 73 year old M underwent valve replacement in 11/2017 which was then complicated with sternal infection/osteo/infected sternal wire. Patient was debrided in July of this year with implantation of antibiotic beads. Patient was draining again and was sent to OR for another debriding and removal of infected pacing and sternal wires with implantation of antibiotic beads on 08/17. Patient was on oral clindamycin, transitioning to vancomycin. Plan Vancomycin IV * Estimated PK Parameters: Vd 0.7 L/kg, Alex 0.06 hr-1, t1/2 11 hr * Loading dose: 2000 mg (23.8 mg/kg) * Maintenance dose: 1250 mg (15 mg/kg) every 12 Hours * Goal trough level 15-20 mcg/mL * Trough ordered for 08/20 @0830 Pharmacy will continue to follow and will adjust dose/frequency as necessary. Thank you.
[2018-08-18] MEDS: ACETAMINOPHEN 325 MG TAB PO SCH ×3 (09:19→20:57)
--- NOTE | 2018-08-18 10:26 | Infectious Disease Consult ---
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 Significance of Tamara unclear. Will hold fluconazole for now given multiple potential serious drug interactions pending final operative cultures. Will likely need prolonged IV antibiotics. Will follow. 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 He has had multiple surgeries in the past with debridement, and has been on chronic clindamycin therapy for MRSA infection. He has developed recurrent drainage, had recent procedure, but symptoms persisted and is now undergone more extensive debridement and drainage with finding of a pocket of purulence involving sternal as well as pacer wires which moved. Operative cultures are growing Tamara so far, Gram stain shows no organisms. Patient currently on IV vancomycin. Complaining of pain in chest currently 6 out of 10 in intensity. No current fever. Allergies Allergy/AdvReac Type Severity Reaction Status Date / Time niacin Allergy Mild Flushing Verified 08/17/18 06:37 Home Medications Home Medications Medication Instructions Recorded Confirmed Type aspirin 325 mg tablet 325 mg PO QAM 06/18/18 08/17/18 History atorvastatin 40 mg tablet 40 mg PO QAM 06/18/18 08/17/18 History carvedilol 3.125 mg tablet 3.125 mg PO BID tab 06/18/18 08/17/18 History hydroxychloroquine 200 mg tablet 200 mg PO QAM 06/18/18 08/17/18 History lisinopril 2.5 mg tablet 2.5 mg PO QAM 06/18/18 08/17/18 History multivitamin tablet 1 tab PO QAM 06/18/18 08/17/18 History trazodone 50 mg tablet 50 mg PO HS 06/18/18 08/17/18 History clindamycin HCl 300 mg capsule 300 mg PO tid 30 Days #90 cap 07/10/18 08/17/18 Rx tramadol [Ultram] 50 mg PO QID PRN #15 tab 07/21/18 08/17/18 Rx nitroglycerin 0.4 mg sublingual 0.4 mg SL Q5M PRN #10 tab 07/23/18 08/17/18 Rx tablet ferrous sulfate 325 mg (65 mg 325 mg PO DAILY #90 tab 07/24/18 08/17/18 Rx iron) tablet citalopram 20 mg tablet 20 mg PO QAM #90 tab 08/03/18 08/17/18 Rx hydrocodone 5 mg-acetaminophen 325 1 tab PO Q6H PRN #30 tab 08/10/18 08/17/18 Rx mg tablet furosemide 20 mg PO QAM 08/11/18 08/17/18 History Patient History Medical History Anemia Anxiety CAD (coronary atherosclerotic disease) STENTS X ?4 (2011), LENCHO X 2 (2016) COPD (chronic obstructive pulmonary disease) MILD CVA (cerebral vascular accident) 1999 "MILD" Hypercholesteremia Hypertension Kidney stones Mitral valve disease S/P BIOPROSTHETIC MVR (11/11/2017) Non-healing wound CHEST (REASON FOR PROCEDURE) Obstructive sleep apnea NO DEVICE Rheumatoid arthritis Surgical History History of cardiac cath History of cataract surgery RT/LT History of cholecystectomy History of colonoscopy History of esophagogastroduodenoscopy (EGD) + DILATION History of mitral valve replacement 11/2017 History of open reduction and internal fixation (ORIF) procedure RT ANKLE+HARDWARE REMOVAL History of tonsillectomy History of tooth extraction S/P cholecystectomy S/P debridement WOUND VAC TO CHEST INCISION 04/2018 (CURRENTLY OFF) S/P debridement 07/21/18 Dr. Darius Saul Sternal debridement with removal x 3 wires and placement of abx beads Family History Brother Family history of diabetes mellitus Social History Preferred Language: Citizen Of [place] Communication Ability: Effective Visual Impairment: Partially Limited Hearing Ability: Hard of Hearing [place] Required: No Beliefs That Will Affect Care: None marital status: Current Living Situation: Spouse current occupational status: retired Other Information That Helps Us Care for You: No Feels Safe at Home: Yes Safety Concerns: Feels Safe At This Time Smoking Status: Never smoker Tobacco Type: cigarettes Do You Dip or Chew Tobacco: No Second Hand Exposure: No Tobacco Cessation Education Requested by Patient: No Hx Alcohol Use: No Hx Substance Use: No during the past year weight has: decreased > 10 lbs Review of Systems Review of Systems: All systems reviewed & are unremarkable except as noted in HPI & below Physical Exam Constitutional: WD/WN, vitals as above comfortable; no acute distress Eyes: PERRL, conjunctivae normal, anicteric sclerae ENMT: external ear and nose normal, oropharynx normal Neck: trachea midline, no thyromegaly neck nontender Respiratory: normal respiratory effort, lungs clear to auscultation normal percussion; does not use accessory muscles Cardiovascular: Rate/Rhythm: regular rate and regular rhythm Heart Sounds: normal S1 and normal S2; no gallop, no murmur and no cardiac rub Vessels: normal peripheral pulses; no JVD Gastrointestinal (Abdomen): normal bowel sounds, soft, nontender, no hepatosplenomegaly Musculoskeletal: no cyanosis or clubbing, extremities motor strength 5/5 Spine: thoracic spine normal to inspection and lumbar spine normal to inspection; no cervical spinal tenderness Skin: no rashes, warm and dry normal turgor and + wound (Surgical dressing intact anterior chest wall) Neurologic: patellar DTR's 2+ bilat, sensation intact no focal motor deficits Psychiatric: A+Ox3, euthymic affect Orientation: cooperative Lymphatic: no cervical or axillary lymphadenopathy no inguinal lymphadenopathy Results & Data Vital Signs (Past 12 Hours) Vital Signs Temp Pulse Pulse Resp BP Pulse Ox 08/18/18 06:56 36.7 C 77 16 127/77 94 08/18/18 06:30 36.8 C 72 18 145/70 H 94 08/18/18 02:30 36.6 C 75 16 118/69 92 08/17/18 22:24 36.8 C 79 18 119/71 93 Laboratory Results Short CBC 08/18/18 Range/Units 06:32 WBC 7.67 (4.8-10.8) K/uL Hgb 11.9 L (14.0-18.0) g/dL Hct 36.5 L (42-52) % Plt Count 175 (130-400) K/uL BMP 08/18/18 06:32 Creatinine 0.93 Diagnostic Findings Microbiology 08/17/18 Unknown Chest Gram Stain - Final 07/08/19 Unknown Chest Aerobic and Anaerobic Culture - Preliminary Tamara albicans SINGLE VIEW CHEST CLINICAL HISTORY: Status post sternal debridement. FINDINGS: An AP, portable, upright chest radiograph is compared to study dated 07/21/2018 and correlated with chest CT dated 06/25/2018. The examination is degraded by portable technique and patient rotation. Midline skin clips and a midline surgical drain are noted. Small round densities projecting over the rig ht mediastinum likely represent antibiotic implants. A drain also projects over the left upper quadrant of the abdomen. A single midline sternotomy wire remains. There is evidence of previous cardiac valve surgery. The heart is enlarged and there is atherosclerotic calcification of the thoracic aorta. The pulmonary vasculature is noncongested. There are low lung volumes with bibasilar atelectasis. No airspace consolidation or large pleural effusion is identified. No pneumothorax is seen. The skeletal structures are osteopenic. 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 Cholecystectomy clips are noted. IMPRESSION: 1. Postoperative findings as above. 2. Cardiomegaly without radiographic evidence of congestive failure. 3. Low lung volumes with no airspace consolidation or large pleural effusion identified. Electronically signed by: Enrique Connolly M.D. 08/17/2018 9:47 AM Dictated: 08/17/18 0944 Transcribed: 08/17/18 0944
--- NOTE | 2018-08-18 17:10 | Progress Note ---
DATE: 08/18/2018 Mr. Lizarraga was seen today on 08/18/2018 one day after I did a sternal debridement. Interestingly enough his growing Tamara out from the pocket around his pacing wires. We are going to ask infectious disease to see him. He has serous drainage from his Octavio-Sloan. The patient states his pain is a little better, although he is a bit anxious and does worry about pain quite a bit. Quite pleased with how well he looks. He has been walking. We are now postop day 1 from his debridement. We will inspect his dressing tomorrow and hopefully remove his Octavio-Moreira drain. Quite pleased with how well he looks.
[2018-08-18] MEDS: TRAZODONE HCL 50 MG TAB PO SCH (20:59)
[2018-08-18] MEDS: VANCOMYCIN HCL 1,250 MG in SODIUM CHLORIDE 0.9% 250 ML IV SCH (21:06)
[2018-08-19] MEDS: OXYCODONE HCL IR 5 MG TAB (IMMEDIATE RELEASE) PO PRN ×2 (02:50→10:58)
[2018-08-19] MEDS: ACETAMINOPHEN 325 MG TAB PO SCH ×4 (02:50→20:12)
[2018-08-19] MEDS: MoRPHine SULFATE 2 MG/ML CARP IV PRN ×4 (07:48→18:50)
[2018-08-19] MEDS: VANCOMYCIN HCL 1,250 MG in SODIUM CHLORIDE 0.9% 250 ML IV SCH ×2 (08:41→20:13)
[2018-08-19] MEDS: ENOXAPARIN INJ 40 MG/0.4 ML SYR SQ SCH (08:42)
[2018-08-19] MEDS: MULTIVITAMIN TAB PO SCH (08:44)
[2018-08-19] MEDS: HYDROXYCHLOROQUINE SULFATE 200 MG TAB PO SCH (08:44)
[2018-08-19] MEDS: CARVEDILOL 3.125 MG TAB PO SCH ×2 (08:44→20:13)
[2018-08-19] MEDS: LISINOPRIL 2.5 MG TAB PO SCH ×2 (08:44→09:14)
[2018-08-19] MEDS: ATORVASTATIN 40 MG TAB PO SCH (08:45)
[2018-08-19] MEDS: CITALOPRAM 20 MG TAB PO SCH (08:45)
[2018-08-19] MEDS: ASPIRIN 325 MG ECTAB PO SCH (08:45)
[2018-08-19] MEDS: DOCUSATE SODIUM 100 MG CAP PO SCH ×2 (08:48→20:13)
[2018-08-19 10:08] LABS: Creatinine Clr Calc Pharmacy 68.5 ml/min; Est GFR (African American) 88.9; Est GFR (Non-African American) 76.7
--- NOTE | 2018-08-19 17:06 | Progress Note ---
DATE: 08/19/2018 The patient was seen today 2 days after his sternal debridement. I think he looks quite good. His incision looks good. He is still draining a bit more serous fluid than I would like from his Octavio-Moreira. We will keep it in one more day and the amount is decreasing. We may remove this drain and send him home tomorrow.
--- NOTE | 2018-08-19 19:38 | Infectious Disease Progress Nt ---
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 Significance of Tamara unclear. Will hold fluconazole for now given multiple potential serious drug interactions pending final operative cultures. Will likely need prolonged IV antibiotics. Will follow. Subjective Patient seen in follow-up for sternal wound infection. Pain better controlled today, remains afebrile, no new complaints. Tolerating antibiotic without apparent difficulty. Cultures so far only growing Tamara. Review of Systems Review of Systems: All systems reviewed & are unremarkable except as noted in HPI & below Physical Exam Constitutional: WD/WN, vitals as above comfortable; no acute distress Eyes: PERRL, conjunctivae normal, anicteric sclerae ENMT: external ear and nose normal, oropharynx normal Neck: trachea midline, no thyromegaly neck nontender Respiratory: normal respiratory effort, lungs clear to auscultation normal percussion; does not use accessory muscles Cardiovascular: Rate/Rhythm: regular rate and regular rhythm Heart Sounds: normal S1 and normal S2; no gallop, no murmur and no cardiac rub Vessels: normal peripheral pulses; no JVD Gastrointestinal (Abdomen): normal bowel sounds, soft, nontender, no hepatosplenomegaly Musculoskeletal: no cyanosis or clubbing, extremities motor strength 5/5 Spine: thoracic spine normal to inspection and lumbar spine normal to inspection; no cervical spinal tenderness Skin: no rashes, warm and dry normal turgor and + wound (Surgical dressing intact anterior chest wall) Neurologic: patellar DTR's 2+ bilat, sensation intact no focal motor deficits Psychiatric: A+Ox3, euthymic affect Orientation: cooperative Lymphatic: no cervical or axillary lymphadenopathy no inguinal lymphadenopathy Results & Data Vital Signs (Past 12 Hours) Vital Signs Temp Pulse Resp BP Pulse Ox 08/19/18 15:10 37.0 C 78 18 117/74 93 08/19/18 11:54 36.8 C 68 20 130/74 98 08/19/18 08:40 82 129/83 Laboratory Results [facility] 08/19/18 09:24 Creatinine 0.98 Diagnostic Findings Microbiology 08/17/18 Unknown Chest Gram Stain - Final 08/17/18 Unknown Chest Aerobic and Anaerobic Culture - Preliminary Tamara albicans
[2018-08-19] MEDS: TRAZODONE HCL 50 MG TAB PO SCH (20:12)
[2018-08-20] MEDS: MoRPHine SULFATE 2 MG/ML CARP IV PRN ×2 (00:04→06:48)
[2018-08-20] MEDS: ACETAMINOPHEN 325 MG TAB PO SCH ×3 (03:34→14:50)
[2018-08-20] MEDS: OXYCODONE HCL IR 5 MG TAB (IMMEDIATE RELEASE) PO PRN ×3 (03:34→14:51)
--- NOTE | 2018-08-20 07:35 | Progress Note ---
DATE: 08/20/2018 Mr. Lizarraga was seen today on 08/20/2018. He is now postop day #3 status post a sternal debridement and removal of apparent infected pacing wires. Superficially, the patient looked quite good when we opened his incision and I was still a bit unclear exactly why he recurred. In debriding his lower sternum, I came up on a pocket of pus which appeared to be in the subfascial area inferiorly. This was where the pacing wires were. This is the pocket that grew out Tamara. I then removed these pacing wires. I removed the Octavio-Moreira today and his incisions looked good. I will need to discuss this with Dr. Pittman because I personally do not feel that [id number] Staph aureus coverage is needed as we have vancomycin in our beads. This will produce extremely high local tissue levels. The Diflucan, however, is an issue. I will discuss this with him and discharge Mr. Lizarraga this afternoon.
[2018-08-20] MEDS ORDERED: VANCOMYCIN TROUGH ONE (08:30)
[2018-08-20 08:34] LABS: Hematocrit (blood only) 34.5 % (42-52); Hemoglobin 11.3 g/dL (14.0-18.0); Mean Corpuscular Hgb Conc 32.8 g/dL (32-36); Mean Corpuscular Volume 88.2 fL (80-100); Mean Platelet Volume 9.4 fL (7.4-10.4); Platelet Count 182 K/uL (130-400); RDW Coefficient of Variation 14.3 % (11.5-14.5); Red Blood Count 3.91 M/uL (4.7-6.1); White Blood Count 6.08 K/uL (4.8-10.8)
[2018-08-20 09:07] LABS: Creatinine Clr Calc Pharmacy 71.4 ml/min; Est GFR (African American) 93.5; Est GFR (Non-African American) 80.7
[2018-08-20] MEDS: DOCUSATE SODIUM 100 MG CAP PO SCH (09:13)
[2018-08-20] MEDS: LISINOPRIL 2.5 MG TAB PO SCH (09:14)
[2018-08-20] MEDS: ASPIRIN 325 MG ECTAB PO SCH (09:17)
[2018-08-20] MEDS: CITALOPRAM 20 MG TAB PO SCH (09:17)
[2018-08-20] MEDS: HYDROXYCHLOROQUINE SULFATE 200 MG TAB PO SCH (09:17)
[2018-08-20] MEDS: ENOXAPARIN INJ 40 MG/0.4 ML SYR SQ SCH (09:17)
[2018-08-20] MEDS: MULTIVITAMIN TAB PO SCH (09:17)
[2018-08-20] MEDS: CARVEDILOL 3.125 MG TAB PO SCH (09:17)
[2018-08-20] MEDS: ATORVASTATIN 40 MG TAB PO SCH (09:17)
--- NOTE | 2018-08-20 09:39 | Pharmacy Report ---
Pharmacy Abx Dose Progress Nt - Date of Service August 20, 2018 - Pharmacy Dosing Scope The patient is currently receiving the following antimicrobial agents per Pharmacy consult: Vancomycin 1250 mg IV every 12 hours - Objective Vital Signs (Past 12hrs): Vital Signs Temp Pulse Pulse Resp BP BP Pulse Ox 08/20/18 09:15 84 120/69 08/20/18 07:15 37.4 C 79 21 101/65 96 08/19/18 22:59 36.7 C 73 14 123/75 95 Lab Results (24hrs): Laboratory Tests (24 Hours) 08/20/18 08/20/18 08/20/18 08:23 08:23 08:23 WBC 6.08 Creatinine 0.94 Est Cr Clr Drug Dosing 71.4 Vancomycin Trough 16.6 08/19/18 09:24 WBC Creatinine 0.98 Est Cr Clr Drug Dosing 68.5 Vancomycin Trough Micro Results: 08/17/18 Unknown Gram Stain - Final Chest Tamara - Risk Factors for Resistance * History of infection with a multidrug-resistant organism: MRSA - chest wall 06/18/18 * Antimicrobial use within the last 90 days: Clindamycin - Assessment & Plan Assessment 73 year old M receiving IV Vancomycin for treatment of Abscess of sternal region, chronic wound infection with previous cultures positive for MRSA. PMH valve replacement in 11/2017 which was then complicated with sternal infection/osteo/infected sternal wire. Patient was debrided in July of this year with implantation of antibiotic beads. Patient was draining again and was sent to OR for another debriding and removal of infected pacing and sternal wires with implantation of antibiotic beads on 08/17. Significance of Tamara growing in current Chest culture unclear. Holding fluconazole for now given multiple potential serious drug interactions pending final operative cultures. Will likely need prolonged IV antibiotics. Day # 3 of IV Vancomycin Plan Vancomycin IV * Trough level of 16.6 mcg/mL is therapeutic * Continue dose of 1250 mg IV every 12 hours * Goal trough level for sternal wound, ?osteo : 15 to 20 mcg/mL * Trough level ordered for: 08/22/18 to ensure continued therapeutic dosing Pharmacy will continue to follow and will adjust dose/frequency as necessary. Thank you.
[2018-08-20] MEDS: VANCOMYCIN HCL 1,250 MG in SODIUM CHLORIDE 0.9% 250 ML IV SCH (10:21)
--- NOTE | 2018-08-21 01:50 | Discharge Summary ---
DISCHARGE DIAGNOSES: 1. Persistent sternal wound infection. 2. Hypertension. 3. Depression and anxiety. 4. Hyperlipidemia. 5. Anemia. 6. Hypertension. HOSPITAL COURSE: This is a 73-year-old anxious man who underwent an open heart surgery back in November and developed a sternal wound infection. He has undergone several debridements and in fact I debrided him back on 07/21/2018 and removed what we thought were 3 infected sternal wires. I implanted antibiotic beads. I was quite pleased with his appearance. The patient presented back about 2 weeks after surgery and was noted to have some drainage from his chest, so I scheduled him for reexploration. Going into the operating room, I was surprised that his sternum appeared to be intact. I cleaned him out and did not see evidence of obvious osteomyelitis, but aggressively debrided the lower part of the sternum and opened a pus pocket in the subfascial layer which was cultured for Tamara. This was the site of his pacing wires. These were the atrial wires and I removed these. I also removed the ventricular wires and 2 more sternal wires more superiorly. The wound was quite clean and I did not think there were any other areas that were undrained and I was aggressive in debriding his costal cartilage and lower sternum. Again, he was packed with beads and closed primarily. I did drain him with a Octavio-Moreira drain and it looked quite good. His drainage decreased. We kept him in the hospital. The only culture that was positive was the Tamara. He had no fevers, had no leukocytosis. We discharged him home and told him to resume his clindamycin after I removed his drain on postop day #3. I was quite pleased with this incision and I think he looks better. We will send him home. He is going to require narcotics and I will give him prescription for oxycodone. I will see him back in the office next week.
[2018-08-22] MEDS ORDERED: VANCOMYCIN TROUGH ONE (08:30)
== END 2018-08-20 15:54 | disposition home health service (06) | DRG 857 ==
LOC: ASU 06:20 → 3N 09:21

== ENCOUNTER 2018-10-06 06:11 | Observation (INO) ==
--- NOTE | 2018-10-05 15:00 | Anesthesiology Consultation ---
Date of Service October 05, 2018 Assessment & Plan (1) Encounter for pre-operative examination: - Cardio: 09/17/18: Aware of upcoming procedure. "The patient is stable from a cardiovascular standpoint. His coronary artery disease is quiescent his current medical regimen. We will assess his prosthetic mitral valve once his sternal wound has healed." - Thoracic medicine: 10/05/18: "On 07/21/2018 I debrided him and implant antibiotic beads. He began draining again and on 08/17/2018 I took him back to the operating room and did an aggressive resection of the lower sternum and it turns out he had an infected pacemaker wire which was removed. He did well with this and most notably his pain which is been present since his surgery was almost completely resolved. He feels much better but he still had some drainage from the lower aspect. We removed his skin clips and he has started draining more. I inspected him today and he has a small open area at the lower portion of the incision. We have discussed this several times but I think him to just take him back and reimplant antibiotic beads. He has no fluctuance and no instability. He has had no fevers. We will do this tomorrow on 10/06/2018." - Hx glidescope intubation: S/P I&D sternal wound: 08/17/18: Grade view 2, Glidescope #3, ETT 7.5 at [facility]* Chart Review Chart Review: Acceptable Risk for Surgery (pending evaluation of clinical status and updated BMP AM DOS) and Patient NOT seen in Pre Admission Testing History Surgery Operation Date: 10/06/18 07:30 Proposed Procedures p Sternal Wound Debridement with Antiobiotic Beads - Darius Saul MD, FACS Height/Weight Height: 5 ft 6 in Weight: 80.739 kg Allergies Allergy/AdvReac Type Severity Reaction Status Date / Time niacin Allergy Mild Flushing Verified 10/05/18 14:30 Medications Home Medications Medication Instructions Recorded Confirmed Last Taken aspirin 325 mg tablet 325 mg PO QAM 06/18/18 10/05/18 08/17/18 04:30 hydroxychloroquine 200 mg tablet 200 mg PO QAM 06/18/18 10/05/18 08/16/18 08:00 multivitamin tablet 1 tab PO QAM 06/18/18 10/05/18 08/16/18 08:00 tramadol [Ultram] 50 mg PO QID PRN #15 tab 07/21/18 10/05/18 Unknown nitroglycerin 0.4 mg sublingual 0.4 mg SL Q5M PRN #10 tab 07/23/18 10/05/18 Unknown tablet citalopram 20 mg tablet 20 mg PO QAM #90 tab 08/03/18 10/05/18 08/16/18 08:00 lisinopril 2.5 mg tablet 2.5 mg PO DAILY #30 tab 08/19/18 10/05/18 Unknown trazodone 50 mg tablet 50 mg PO HS #90 tab 08/26/18 10/05/18 Unknown tramadol 50 mg tablet 50 mg PO Q4H PRN #30 tab 09/14/18 10/05/18 Unknown acetaminophen [Tylenol] 650 mg PO Q6H PRN 10/05/18 10/05/18 Unknown atorvastatin 40 mg PO QAM 10/05/18 10/05/18 Unknown carvedilol 3.125 mg tablet 3.125 mg PO BID #180 tab 10/05/18 10/05/18 Unknown ferrous sulfate 325 mg PO QAM 10/05/18 10/05/18 Unknown fluconazole 200 mg PO QAM 10/05/18 10/05/18 Unknown furosemide 20 mg PO QAM 10/05/18 10/05/18 Unknown potassium chloride 20 meq PO QAM 10/05/18 10/05/18 Unknown Past Medical History Medical History History of difficult intubation S/P I&D sternal wound: 08/17/18: Grade view 2, Glidescope #3, ETT 7.5 at [facility] Anemia Anxiety CAD (coronary atherosclerotic disease) TOTAL 7 STENTS- MOST RECENT STENTS X 2 IN 2017 COPD (chronic obstructive pulmonary disease) MILD CVA (cerebral vascular accident) 1999 "MILD"-NO ISSUES SINCE Hypercholesteremia Hypertension Kidney stones Mitral valve disease S/P BIOPROSTHETIC MVR (11/11/2017) Non-healing wound CHEST (REASON FOR PROCEDURE) Obstructive sleep apnea NO DEVICE-UNABLE TO TOLERATE Rheumatoid arthritis Past Family History Family History Brother Family history of diabetes mellitus Past Surgical History Surgical History History of cardiac cath X 3 (TOTAL 7 STENTS- MOST RECENT STENTS X 2 IN 2017) History of cataract surgery RT/LT History of cholecystectomy History of colonoscopy History of esophagogastroduodenoscopy (EGD) + DILATION History of mitral valve replacement 11/2017 History of open reduction and internal fixation (ORIF) procedure RT ANKLE+HARDWARE REMOVAL History of tonsillectomy History of tooth extraction S/P cholecystectomy S/P debridement X MULTIPLE-DUE TO POST OP INFECTION FROM OPEN HEART SURGERY 11/2017 S/P debridement 07/21/18 Dr. Darius Saul Sternal debridement with removal x 3 wires and placement of abx beads Past Anesthesia History Difficult Airway (S/P I&D sternal wound: 08/17/18: Grade view 2, Glidescope #3, ETT 7.5 at [facility]*) Social History Smoking Status: Former smoker tobacco type: cigarettes Do You Dip or Chew Tobacco: No Smoking End Date: QUIT 25 YRS AGO Hx Alcohol Use: Yes Alcohol type: beer alcohol intake frequency: holidays/special occasions only Hx Substance Use: No substance use type: does not use Testing Laboratory Results 08/20/18 WBC 6.08 H/H 11.3/34.5 PLATELETS 182 06/24/18 SODIUM: 136 POTASSIUM: 4.1 CHLORIDE: 102 CO2: 30 BUN: 32 CREATININE: 1.07 GLUCOSE: 133 08/18/18 PT 11.0 PTT 25.1 INR 1.1 Electrocardiogram Date: 07/09/18 + NSR @ (72 with PACs) Left axis deviation. Inferior infarct, age undetermined. Compared with EKG of 07/06/2003, PACs are now present, inferior infarct is now present, nonspecific change in ST segment in anterior leads. *inferior infarct also noted, as "old inferior infarct," on outside EKG from 11/25/17 (scanned to chart). Chest X-Ray Date: 08/17/18 Midline skin clips and a midline surgical drain are noted. Small round densities projecting over the right mediastinum likely represent antibiotic implants. A drain also projects over the left upper quadrant of the abdomen. A single midline sternotomy wire remains. There is evidence of previous cardiac valve surgery. The heart is enlarged and there is atherosclerotic calcification of the thoracic aorta. The pulmonary vasculature is noncongested. There are low lung volumes with bibasilar atelectasis. No airspace consolidation or large pleural effusion is identified. No pneumothorax is seen. The skeletal structures are osteopenic. 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 Cholecystectomy clips are noted. Cardiomegaly without radiographic evidence of congestive failure. Low lung volumes with no airspace consolidation or large pleural effusion identified. Echocardiogram Date: 12/24/17 EF: 42% Nondilated left ventricle with segmental abnormalities as described above and mildly decreased systolic function. Wall thickness is increased consistent with borderline LVH. The calculate a left ventricular ejection fraction is 42%. Paradoxical septal motion consistent with postoperative septal motion. Normal RV size. The right ventricle is moderately decreased function. Thickened and calcified aortic valve. There is a bioprosthesis in the mitral position. Mitral valve mean gradient is 5 mmHg. Mild left atrial enlargement. Grade 1 diastolic dysfunction. Stress Test Date: 09/03/17 Type: nuclear Abnormal regadenoson SPECT myocardial perfusion study. There is a moderate area of moderate inferolateral infarction, with moderate oliverio-infarct ischemia. There is a small area of moderate anteroapical infarction, no ischemia. Resting EF of 48%, poststress EF was 52%. *Pt had subsequent cardiac cath 09/26/17* Cardiac Catheterization Date: 09/26/17 Intervention: + none Severe [place] 2 vessel CAD with significant left CX stenosis, chronic total occlusion of RCA. Patent LAD stents. Severe MR. EF 55%. Other Testing Chest CT: 06/25/18: Central airways patent. Pulmonary arteries are minimally enlarged relative to adjacent bronchi. No interlobular septal thickening. M inimal dependent changes likely atelectasis. Dehiscence of the sternotomy at the level of the fourth costochondral articulation. This may in part be due to a sternotomy wire which traverses the sternotomy plain. At this level, 2.3 cm abscess superficial to the sternal dehiscence. No retrosternal inflammation. Post surgical changes of mitral valve replacement
[2018-10-06] MEDS ORDERED: PROPOFOL IV EMULSION 10 MG/ML 20 ML VIAL IV ONE (06:55)
[2018-10-06] MEDS ORDERED: LIDOCAINE HCL 2% 2 ML VIAL/AMP(20MG/ML) INFIL ONE (06:55)
[2018-10-06] MEDS ORDERED: fentaNYL citrate 100 MCG/2 ML VIAL ONE (06:55)
[2018-10-06] MEDS ORDERED: ONDANSETRON INJ 2 MG/ML 2 ML VIAL ONE (06:55)
--- NOTE | 2018-10-06 06:55 | History & Physical Bridge Note ---
Date of Service October 06, 2018 History & Physical Bridge Note I have examined the patient, reviewed the History & Physical and in the interval since the performance of the History & Physical I have noted the following changes of clinical significance: no changes noted
[2018-10-06] MEDS ORDERED: VANCOMYCIN HCL 1000MG/20ML VIAL ONE ×2 (07:06→08:06)
[2018-10-06] MEDS ORDERED: GENTAMICIN SULFATE 40 MG/ML 2 ML VIAL ONE ×2 (07:06→08:06)
[2018-10-06] MEDS ORDERED: LACTATED RINGER'S 1,000 ML IV SCH (07:15)
[2018-10-06] MEDS ORDERED: ATROPINE SULFATE 0.1 MG/ML 10ML SYR IV PRN (07:19)
[2018-10-06] MEDS ORDERED: ePHEDrine sulfate 50 MG/ML AMP IV PRN (07:19)
[2018-10-06] MEDS ORDERED: ONDANSETRON INJ 2 MG/ML 2 ML VIAL IV PRN (07:19)
[2018-10-06] MEDS ORDERED: BUPIVACAINE 0.5 % 5 MG/1 ML MPF 30ML VIAL ONE (07:41)
[2018-10-06] MEDS ORDERED: BACITRACIN INJ 50,000 UNIT VIAL ONE (07:58)
[2018-10-06 07:59] LABS: BUN Creatinine Ratio 20.5 (10-20); Creatinine Clr Calc Pharmacy 63.5 ml/min; Est GFR (African American) 81.8; Est GFR (Non-African American) 70.6; Potassium 4.5 mmol/L (3.5-5.1)
--- NOTE | 2018-10-06 08:50 | Post Operative Brief Note ---
PG Immediate Post Op with CF Date of Surgery October 06, 2018 Pre & Post Diagnosis Operation Date: 10/06/18 07:30 Pre-Op Diagnosis: Sternal Wound Breakdown Post-Op Diagnosis: Sternal Wound Breakdown Procedure Operation Date: 10/06/18 07:30 Actual Procedures p Sternal Wound Debridement with placement of Antiobiotic Beads - Darius Saul MD, FACS Surgeon Darius Saul MD, FACS [employer] ROSARIO Estimated Blood Loss 40 Findings Consistent with Post-Op Diagnosis Specimens Specimen Description: Culture of sternal wound sent for routine c&s, gram stain, fungus
[2018-10-06] MEDS ORDERED: METOCLOPRAMIDE HCL INJ 5 MG/ML 2 ML VIAL IV ONE (09:05)
[2018-10-06] MEDS: fentaNYL citrate 100 MCG/2 ML VIAL IV PRN ×4 (09:12→09:29)
--- NOTE | 2018-10-06 09:41 | Anesthesiology Progress Note ---
Date of Service October 06, 2018 Anesthesia Post Procedure Vital Signs Vital Signs: Temp Pulse Pulse Resp BP Pulse Ox 10/06/18 09:30 97.5 F L 70 16 106/64 98 10/06/18 09:20 97.5 F L 69 15 115/69 99 10/06/18 09:10 97.5 F L 75 15 138/78 100 10/06/18 09:04 97.5 F L 81 21 141/86 H 99 10/06/18 06:45 98.8 F 74 18 145/87 H 98 Pain Intensity Medial Chest: Pain Intensity: 4 Transfer of Care Handoff Completed per policy Notes Mental Status: alert / awake / arousable and participated in evaluation Patient Amnestic to Procedure: Yes Nausea / Vomiting: adequately controlled Pain: adequately controlled Airway Patency, RR, SpO2: stable & adequate BP & HR: stable & adequate Hydration State: stable & adequate Anesthetic Complications: no major complications apparent and Pt Satisfied with anesthetic care
[2018-10-06] MEDS ORDERED: CEFAZOLIN 2000MG 2,000 MG/15 ML SYR IV ONE (10:33)
[2018-10-06] MEDS ORDERED: CEFAZOLIN 250 MG/ML 1 GM VIAL ONE (10:33)
[2018-10-06] MEDS ORDERED: NITROGLYCERIN SL 0.4 MG/TAB TAB SL PRN (10:43)
[2018-10-06] MEDS ORDERED: D5W AND 1/2NSS 1,000 ML IV SCH (10:43)
--- NOTE | 2018-10-06 11:30 | Operative Report ---
DATE OF OPERATION: 10/06/2018 PREOPERATIVE DIAGNOSIS: Sternal wound breakdown. POSTOPERATIVE DIAGNOSIS: Sternal wound breakdown. PROCEDURE: Exploration of sternal wound with implantation of purified calcium sulfate beads impregnated with vancomycin and gentamicin. SURGEON: Darius Saul MD. HEAD OF TRAINING AND DEVELOPMENT: ABRAHAM Henry (Mr. Pinedo was present for the entire case). ANESTHESIA: General anesthesia, endotracheal intubation. INDICATION FOR PROCEDURE AND FINDINGS: Mr. Lizarraga is a 73-year-old who underwent a sternotomy in November of 2017 and had a sternal wound, osteomyelitis. He was debrided multiple times at outside hospitals and presented to me and I brought him to the operating room and did a debridement and implanted antibiotic beads. Surprisingly, he drained again. So I took him back in August of this year about a month after my initial surgery and he was found to have infected temporary pacing wires which had been cut at the skin. I removed all of these wires. They grew out a Tamara species. We implanted him and he looked quite good for some time; however, his edema decreased quite a bit and his wound looked quite good, but he had loss of coaptation of the wound edges inferiorly and began draining fluid. This was cultured and did not grow any organisms which was not surprising given the antibiotic beads which elute antibiotics for several weeks. I saw him in the office yesterday as he has been draining and this was quite concerning to the patient and his , so I elected to proceed with a return to the operating room and reclosing this wound. DESCRIPTION OF PROCEDURE: On 10/06/2018, the patient brought to the operating room and I opened the lower portion of the wound. He did have a space; however, I saw no evidence of infection. His sternum appeared stable. I did use a curette to scrape off some exudative material, but there was no pus. There was no erythema of the wound. There was nothing else to suggest infection. A 20 mL of Stimulan purified calcium sulfate was mixed with 2 grams of vancomycin and 480 mg of gentamicin. These were mixed together. When a formed a putty-like consistency, they were placed on the mold. When the beads had set, the mold was bent and the beads removed. We used 3 liters of bacitracin irrigant to pulse lavage this entire wound. We really did not have much of a space here. The beads were then used to completely fill the space. A 0 Vicryl was used in a [id number] fashion to close the deeper subcutaneous tissues and muscle layers. A 0 Nurolon was used to close the skin in a vertical mattress fashion quite securely. We also used interrupted simple 2-0 nylons to approximate the skin. This came together under no tension. The patient tolerated it quite well with negligible blood loss. He was extubated in the room. We are going to keep him overnight for observation. I attest to the content of the Intraoperative Record and any orders documented therein. Any exception s are noted below.
[2018-10-06] MEDS: ATORVASTATIN 40 MG TAB PO SCH (12:08)
[2018-10-06] MEDS: FERROUS SULFATE 325 MG TAB PO SCH (12:09)
[2018-10-06] MEDS: MULTIVITAMIN TAB PO SCH (12:09)
[2018-10-06] MEDS: LISINOPRIL 2.5 MG TAB PO SCH (12:10)
[2018-10-06] MEDS: HYDROXYCHLOROQUINE SULFATE 200 MG TAB PO SCH (12:10)
[2018-10-06] MEDS: ASPIRIN 325 MG ECTAB PO SCH (12:10)
[2018-10-06] MEDS: CARVEDILOL 3.125 MG TAB PO SCH ×2 (12:10→20:36)
[2018-10-06] MEDS: ACETAMINOPHEN 1,000 MG/100 ML VIAL IV SCH ×2 (12:11→18:36)
[2018-10-06 12:38] LABS: Hematocrit (blood only) 36.6 % (42-52); Hemoglobin 12.2 g/dL (14.0-18.0); Mean Corpuscular Hemoglobin 29.2 pg (25-34); Mean Corpuscular Hgb Conc 33.3 g/dL (32-36); Mean Corpuscular Volume 87.6 fL (80-100); Mean Platelet Volume 10.3 fL (7.4-10.4); Platelet Count 170 K/uL (130-400); RDW Coefficient of Variation 14.6 % (11.5-14.5); RDW Standard Deviation 46.8 fL (36.4-46.3); Red Blood Count 4.18 M/uL (4.7-6.1); White Blood Count 7.31 K/uL (4.8-10.8)
[2018-10-06 12:46] LABS: INR 1.1 (0.9-1.1); Prothrombin Time 10.8 Seconds (9.0-12.0)
[2018-10-06] MEDS: MoRPHine SULFATE 2 MG/ML CARP IV PRN ×2 (13:49→16:38)
[2018-10-06] MEDS ORDERED: FLUCONAZOLE 100 MG TAB PO SCH (15:30)
[2018-10-06] MEDS: METOCLOPRAMIDE HCL INJ 5 MG/ML 2 ML VIAL IV SCH (16:26)
[2018-10-06] MEDS: CITALOPRAM 20 MG TAB PO SCH (16:26)
[2018-10-06] MEDS ORDERED: TRAZODONE HCL 50 MG TAB PO SCH (21:00)
[2018-10-06] MEDS: OXYCODONE HCL IR 5 MG TAB (IMMEDIATE RELEASE) PO PRN (22:02)
[2018-10-07] MEDS: MoRPHine SULFATE 2 MG/ML CARP IV PRN (00:59)
[2018-10-07] MEDS: METOCLOPRAMIDE HCL INJ 5 MG/ML 2 ML VIAL IV SCH (00:59)
[2018-10-07] MEDS: ACETAMINOPHEN 1,000 MG/100 ML VIAL IV SCH (03:11)
[2018-10-07] MEDS ORDERED: ONDANSETRON INJ 2 MG/ML 2 ML VIAL IV PRN (06:00)
[2018-10-07 06:34] VITALS: O2SAT 91
[2018-10-07] MEDS: OXYCODONE HCL IR 5 MG TAB (IMMEDIATE RELEASE) PO PRN (07:47)
[2018-10-07 08:00] VITALS: BP 114/72; PULSE 85; TEMP 97.9
[2018-10-07] MEDS: CARVEDILOL 3.125 MG TAB PO SCH (08:49)
[2018-10-07] MEDS: CITALOPRAM 20 MG TAB PO SCH (08:49)
[2018-10-07] MEDS: ASPIRIN 325 MG ECTAB PO SCH (08:49)
[2018-10-07] MEDS: ATORVASTATIN 40 MG TAB PO SCH (08:50)
[2018-10-07] MEDS: FERROUS SULFATE 325 MG TAB PO SCH (08:50)
[2018-10-07] MEDS: HYDROXYCHLOROQUINE SULFATE 200 MG TAB PO SCH (08:53)
[2018-10-07] MEDS: LISINOPRIL 2.5 MG TAB PO SCH (08:53)
[2018-10-07] MEDS: MULTIVITAMIN TAB PO SCH (08:53)
[2018-10-07] MEDS ORDERED: ENOXAPARIN INJ 40 MG/0.4 ML SYR SQ SCH (09:00)
--- NOTE | 2018-10-07 23:20 | Discharge Summary ---
DATE OF ADMISSION: 10/06/2018 DATE OF DISCHARGE: 10/07/2018 DISCHARGE DIAGNOSES: 1. Nonhealing sternal wound. 2. Status post aortic valve replacement. HOSPITAL COURSE: Mr. Lizarraga is a very nice 73-year-old male who underwent an aortic valve replacement last year and developed a sternal wound infection. I have debrided him twice and he is improved. It turns out he had an infected temporary pacing wires, which had been cut at the surface and I removed these. He has had some persistent drainage, but he has markedly decreased erythema and pain in his wound. Drainage has been cultured and was sterile, which is not surprising given the antibiotics beads, which elute antibiotics for several weeks. At this point, I elected to bring him back and repack him with antibiotic beads because the wound was open. We do sometimes see this when the swelling decreases. The patient underwent a minor debridement and implantation of antibiotic bead with a primary closure of his chest. He did very well. He was still nauseated and had some other issues postoperatively. I elected to keep him overnight under observation. He looked much better this morning. He was discharged home after I changed his dressing. His incision looks quite good. We did close the incision quite securely using nylon sutures. We will see him back in the office next week. Discharge instructions were given as well as pain medications.
== END 2018-10-07 09:58 | disposition home health service (06) ==
LOC: 3W 06:11 → ASU 06:11

== ENCOUNTER 2018-10-20 11:36 | Observation (INO) ==
--- NOTE | 2018-10-19 11:58 | Anesthesiology Consultation ---
Date of Service October 19, 2018 History Surgery Operation Date: 10/20/18 13:00 Proposed Procedures p Sternal Wound Debridement with Antibiotic Beads - Darius Saul MD, FACS Height/Weight Height: 5 ft 6 in Weight: 81.647 kg Allergies Allergy/AdvReac Type Severity Reaction Status Date / Time niacin Allergy Mild Flushing Verified 10/19/18 11:35 Medications Home Medications Medication Instructions Recorded Confirmed Last Taken aspirin 325 mg tablet 325 mg PO QAM 06/18/18 10/19/18 10/05/18 08:30 hydroxychloroquine 200 mg tablet 200 mg PO QAM 06/18/18 10/19/18 10/05/18 08:00 multivitamin tablet 1 tab PO QAM 06/18/18 10/19/18 10/05/18 08:00 nitroglycerin 0.4 mg sublingual 0.4 mg SL Q5M PRN #10 tab 07/23/18 10/19/18 Unknown tablet citalopram 20 mg tablet 20 mg PO QAM #90 tab 08/03/18 10/19/18 10/05/18 08:00 lisinopril 2.5 mg tablet 2.5 mg PO DAILY #30 tab 08/19/18 10/19/18 10/05/18 08:00 trazodone 50 mg tablet 50 mg PO HS #90 tab 08/26/18 10/19/18 10/05/18 21:30 acetaminophen [Tylenol] 650 mg PO Q6H PRN 10/05/18 10/19/18 10/05/18 19:00 atorvastatin 40 mg PO QAM 10/05/18 10/19/18 10/05/18 08:00 ferrous sulfate 325 mg PO QAM 10/05/18 10/19/18 10/05/18 08:00 fluconazole 200 mg PO QAM 10/05/18 10/19/18 10/05/18 08:00 furosemide 20 mg PO QAM 10/05/18 10/19/18 10/05/18 08:00 potassium chloride 20 meq PO QAM 10/05/18 10/19/18 10/05/18 08:00 carvedilol 3.125 mg PO BID 10/19/18 10/19/18 Unknown Past Medical History Medical History Anemia Anxiety CAD (coronary atherosclerotic disease) TOTAL 7 STENTS- MOST RECENT STENTS X 2 IN 2017 COPD (chronic obstructive pulmonary disease) MILD CVA (cerebral vascular accident) 1999 "MILD"-NO ISSUES SINCE Hypercholesteremia Hypertension Kidney stones Mitral valve disease S/P BIOPROSTHETIC MVR (11/11/2017) Non-healing wound CHEST (REASON FOR PROCEDURE) Obstructive sleep apnea NO DEVICE-UNABLE TO TOLERATE Rheumatoid arthritis Past Family History Family History Brother Family history of diabetes mellitus Past Surgical History Surgical History History of difficult intubation S/P I&D sternal wound: 08/17/18: Grade view 2, Glidescope #3, ETT 7.5 at [facility] History of cardiac cath X 3 (TOTAL 7 STENTS- MOST RECENT STENTS X 2 IN 2016) History of cataract surgery RT/LT History of cholecystectomy History of colonoscopy History of esophagogastroduodenoscopy (EGD) + DILATION History of mitral valve replacement 11/2017 History of open reduction and internal fixation (ORIF) procedure RT ANKLE+HARDWARE REMOVAL History of tonsillectomy History of tooth extraction S/P cholecystectomy S/P debridement X MULTIPLE-DUE TO POST OP INFECTION FROM OPEN HEART SURGERY 11/2017 S/P debridement 07/21/18 Dr. Darius Saul Sternal debridement with removal x 3 wires and placement of abx beads S/P debridement (10/06/18) Exploration of sternal wound with implantation of purified calcium sulfate beads impregnated with vancomycin and gentamicin. Dr. Saul 10/06/18 Social History Smoking Status: Former smoker tobacco type: cigarettes Smoking End Date: QUIT OVER 25 YEARS AGO Hx Alcohol Use: Yes Alcohol type: beer alcohol intake frequency: holidays/special occasions only Hx Substance Use: No substance use type: does not use Testing Electrocardiogram Date: 07/09/18 Findings: + NSR @ (72/min with PACs. LAD.) and + MN (?IWMI. ) Chest X-Ray Date: 08/17/18 Findings: + cardiomegaly (without overt CHF)
[~2018-10-20 11:36] MED LIST changes: +AMPHOTERICIN B LIPOSOME IV ONE
[2018-10-20] MEDS ORDERED: ATROPINE SULFATE 0.1 MG/ML 10ML SYR IV PRN (12:32)
[2018-10-20] MEDS ORDERED: ONDANSETRON INJ 2 MG/ML 2 ML VIAL IV PRN ×2 (12:32→16:35)
[2018-10-20] MEDS ORDERED: ePHEDrine sulfate 50 MG/ML AMP IV PRN (12:32)
[2018-10-20] MEDS ORDERED: fentaNYL citrate 100 MCG/2 ML VIAL ONE (13:01)
--- NOTE | 2018-10-20 13:23 | History & Physical Report ---
Date of Service October 20, 2018 Assessment & Plan (1) Abscess of sternal region: Present on Admission?: Yes (2) Surgical wound, non healing: I had a long talk with the patient and his . We will proceed with a sternal wound debridement and implantation of stimulator and pharmaceutical grade calcium sulfate impregnated with amphotericin B. We explained this in detail and they are agreeable. Present on Admission?: Yes History of Present Illness This is a 73-year-old male has a history of a poststernotomy sternal wound osteomyelitis. Is been debrided multiple times including the last 3 times here at [facility]. I debrided him and implant antibiotic beads on 07/21/2018 only to bring him back in a month later and remove infected temporary pacing wires which have been cut at the skin allowed to retract back under. This grew out Tamara however, I thought this was probably a contaminant. I did reimplant antibody beads after more aggressive debridement of his lower sternum and was quite pleased however he began draining again so I brought him back and repacked him and closing tightly and reculture him. Surprisingly, he grew out Tamara again. At this point I believe that we are dealing with a fungal infection and not a contaminant. He started draining again although he is not ill. He has been on Diflucan. I am going to bring him back to the operating room today on 10/20/2018 and perform a debridement and implant amphotericin impregnated purified calcium sulfate beads. I discussed this with the patient in detail as well as his . We are going to admit him as an observational patient. Primary Care Provider: Anh Hdez, Allergies Allergy/AdvReac Type Severity Reaction Status Date / Time niacin Allergy Mild Flushing Verified 10/20/18 12:03 Home Medications Home Medications Medication Instructions Recorded Confirmed Type aspirin 325 mg tablet 325 mg PO QAM 06/18/18 10/20/18 History hydroxychloroquine 200 mg tablet 200 mg PO QAM 06/18/18 10/20/18 History multivitamin tablet 1 tab PO QAM 06/18/18 10/20/18 History nitroglycerin 0.4 mg sublingual 0.4 mg SL Q5M PRN #10 tab 07/23/18 10/20/18 Rx tablet citalopram 20 mg tablet 20 mg PO QAM #90 tab 08/03/18 10/20/18 Rx lisinopril 2.5 mg tablet 2.5 mg PO DAILY #30 tab 08/19/18 10/20/18 Rx trazodone 50 mg tablet 50 mg PO HS #90 tab 08/26/18 10/20/18 Rx acetaminophen [Tylenol] 650 mg PO Q6H PRN 10/05/18 10/20/18 History atorvastatin 40 mg PO QAM 10/05/18 10/20/18 History ferrous sulfate 325 mg PO QAM 10/05/18 10/20/18 History fluconazole 200 mg PO QAM 10/05/18 10/20/18 History furosemide 20 mg PO QAM 10/05/18 10/20/18 History potassium chloride 20 meq PO QAM 10/05/18 10/20/18 History carvedilol 3.125 mg PO BID 10/19/18 10/20/18 History Past Med/Surg History Medical History Anemia Anxiety CAD (coronary atherosclerotic disease) TOTAL 7 STENTS- MOST RECENT STENTS X 2 IN 2016 COPD (chronic obstructive pulmonary disease) MILD CVA (cerebral vascular accident) 1999 "MILD"-NO ISSUES SINCE Hypercholesteremia Hypertension Kidney stones Mitral valve disease S/P BIOPROSTHETIC MVR (11/11/2017) Non-healing wound CHEST (REASON FOR PROCEDURE) Obstructive sleep apnea NO DEVICE-UNABLE TO TOLERATE Rheumatoid arthritis Surgical History History of difficult intubation S/P I&D sternal wound: 08/17/18: Grade view 2, Glidescope #3, ETT 7.5 at [facility] History of cardiac cath X 3 (TOTAL 7 STENTS- MOST RECENT STENTS X 2 IN 2016) History of cataract surgery RT/LT History of cholecystectomy History of colonoscopy History of esophagogastroduodenoscopy (EGD) + DILATION History of mitral valve replacement 11/2017 History of open reduction and internal fixation (ORIF) procedure RT ANKLE+HARDWARE REMOVAL History of tonsillectomy History of tooth extraction S/P cholecystectomy S/P debridement X MULTIPLE-DUE TO POST OP INFECTION FROM OPEN HEART SURGERY 11/2017 S/P debridement 07/21/18 Dr. Darius Saul Sternal debridement with removal x 3 wires and p lacement of abx beads S/P debridement (10/06/18) Exploration of sternal wound with implantation of purified calcium sulfate beads impregnated with vancomycin and gentamicin. Dr. Saul 10/06/18 Family History Brother Family history of diabetes mellitus Social History Preferred Language: Syrian Communication Ability: Effective Visual Impairment: Partially Limited Hearing Ability: Hard of Hearing Produce Wrapper Required: No Beliefs That Will Affect Care: None marital status: Current Living Situation: Spouse current occupational status: retired Other Information That Helps Us Care for You: No Feels Safe at Home: Yes Safety Concerns: Feels Safe At This Time Smoking Status: Former smoker Tobacco Type: cigarettes ; Smoking End Date: QUIT OVER 25 YEARS AGO ; Second Hand Exposure: No ; Tobacco Cessation Education Requested by Patient: No Hx Alcohol Use: Yes Alcohol type: beer Hx Substance Use: No during the past year weight has: decreased > 10 lbs Review of Systems Review of Systems: All systems reviewed & are unremarkable except as noted in HPI & below Physical Exam Constitutional: WD/WN, vitals as above Eyes: PERRL, conjunctivae normal, anicteric sclerae Neck: trachea midline, no thyromegaly Respiratory: normal respiratory effort, lungs clear to auscultation normal respiratory effort Cardiovascular: RRR, no murmur, no edema Chest (Breasts): Additional Comments: Well-healing incision is slightly open at the bottom. The sutures are intact and he has some drainage which is clear and serous. There is no surrounding erythema. He has no edema. He has no sternal click. Gastrointestinal (Abdomen): normal bowel sounds, soft, nontender, no hepatosplenomegaly Skin: no rashes, warm and dry Neurologic: patellar DTR's 2+ bilat, sensation intact Results & Data Vital Signs (Past 12 Hours) Vital Signs Temp Pulse Resp BP Pulse Ox 10/20/18 12:18 36.6 C 88 18 163/104 H 98 PG Care Time/CCT Total # of Minutes Spent Total Time Spent with Patient: Total time spent is greater than 50% in coordination of care (as documented) at patient's floor/unit and/or counseling patient: (1) Surgical wound, non healing Encounter type: initial encounter Qualified Code(s): T81.89XA - Other complications of procedures, not elsewhere classified, initial encounter
[2018-10-20] MEDS ORDERED: PROPOFOL IV EMULSION 10 MG/ML 20 ML VIAL IV ONE (13:48)
[2018-10-20] MEDS ORDERED: CEFAZOLIN 250 MG/ML 1 GM VIAL ONE (13:48)
[2018-10-20] MEDS ORDERED: ROCURONIUM BROMIDE 10 MG/ML 5 ML VIAL ONE (13:48)
[2018-10-20] MEDS ORDERED: LIDOCAINE HCL 2% 2 ML VIAL/AMP(20MG/ML) INFIL ONE (13:48)
[2018-10-20] MEDS ORDERED: GLYCOPYRROLATE 0.2 MG/ML VIAL ONE (14:08)
[2018-10-20] MEDS ORDERED: ONDANSETRON INJ 2 MG/ML 2 ML VIAL ONE (14:08)
[2018-10-20] MEDS ORDERED: SODIUM CHLORIDE 0.9% INJ 10 ML VIAL ONE (14:08)
[2018-10-20] MEDS ORDERED: NEOSTIGMINE METHYLSULFATE 5 MG/5 ML SYR ONE (14:08)
[2018-10-20] MEDS ORDERED: ePHEDrine sulfate 50 MG/ML SYR ONE (14:16)
[2018-10-20] MEDS ORDERED: BUPIVACAINE 0.5 % 5 MG/1 ML MPF 30ML VIAL ONE ×2 (14:34→14:54)
[2018-10-20] MEDS ORDERED: SODIUM CHLORIDE 0.9% 50 ML BAG IV STA (14:43)
--- NOTE | 2018-10-20 14:57 | Post Operative Brief Note ---
PG Immediate Post Op with CF Date of Surgery October 20, 2018 Pre & Post Diagnosis Operation Date: 10/20/18 13:00 sternal wound infection Procedure Operation Date: 10/20/18 13:00 Actual Procedures p Sternal Wound Debridement with Antibiotic Beads(Not Applicable) - Darius Saul MD, FACS Surgeon Darius Saul MD, FACS Teleprinter Installer Valorie ROSARIO Estimated Blood Loss 15 Findings Consistent with Post-Op Diagnosis Specimens Specimen Description: Sternal deep wound swab & tissue for stat gram stain, anaerobic, aerobic and fungal/yeast smear
[2018-10-20] MEDS ORDERED: METOCLOPRAMIDE HCL INJ 5 MG/ML 2 ML VIAL IV ONE (15:15)
[2018-10-20] MEDS: fentaNYL citrate 100 MCG/2 ML VIAL IV PRN ×4 (15:23→15:43)
[2018-10-20] MEDS ORDERED: NITROGLYCERIN SL 0.4 MG/TAB TAB SL PRN (16:35)
--- NOTE | 2018-10-20 16:39 | Anesthesiology Progress Note ---
Date of Service October 20, 2018 Anesthesia Post Procedure Vital Signs Vital Signs: Temp Pulse Pulse Resp BP Pulse Ox 10/20/18 16:15 66 20 122/67 100 10/20/18 16:00 65 20 114/69 100 10/20/18 15:50 36.2 C L 69 19 115/62 98 10/20/18 15:40 64 12 131/62 100 10/20/18 15:30 66 23 135/68 100 10/20/18 15:20 66 19 132/86 100 10/20/18 15:14 36.1 C L 78 22 134/97 100 10/20/18 12:18 36.6 C 88 18 163/104 H 98 Pain Intensity Upper Chest: Pain Intensity: 3 Transfer of Care Handoff Completed per policy Notes Mental Status: alert / awake / arousable and participated in evaluation Patient Amnestic to Procedure: Yes Nausea / Vomiting: adequately controlled Pain: adequately controlled Airway Patency, RR, SpO2: stable & adequate BP & HR: stable & adequate Hydration State: stable & adequate Anesthetic Complications: no major complications apparent
--- NOTE | 2018-10-20 16:51 | Operative Report ---
DATE OF OPERATION: 10/20/2018 PREOPERATIVE DIAGNOSES: Apparent Tamara, sternal wound infection. POSTOPERATIVE DIAGNOSES: Apparent Tamara, sternal wound infection. PROCEDURE: Debridement with washout of sternum and implantation of purified calcium sulfate beads reconstituted with amphotericin B with primary closure. SURGEON: Darius Saul MD. RESEARCH ENGINEER: ABRAHAM Henry ANESTHESIA: General anesthesia, endotracheal intubation. INDICATION FOR PROCEDURE AND FINDINGS: This is an unfortunate 73-year-old male who has had a sternal wound infection after a sternotomy in November. [employer] in the operating room and implanted antibiotic beads and closed him and he initially did quite well, began draining from it, I took him back and found that he actually had infected temporary pacing wires which had been cut at the skin and allowed to drain to drawback under the skin. I removed both the atrial and ventricular wires by pulling on them. I cultured this also. We reimplanted him with antibiotic beads and he did well for several weeks; however, surprisingly enough, he grew out Tamara, but this is an unusual pathogen and he has grown out methicillin-resistant Staph aureus again. So, I went ahead and reimplanted him with vancomycin and gentamicin impregnated beads after he began draining but I cultured him again. Culture again came back with Tamara. He looks fine. He is afebrile. His wound looks good, but he is draining fluid and I believe that the Tamara is now a pathogen. We discussed this in the office and I thought that using amphotericin B or Diflucan reconstituted beads would be worthwhile. On 10/20/2018 the patient underwent a re-debridement. His wound is clean. It has also gotten smaller. I saw no evidence of any lower infections. We pulse lavaged this out and it reconstituted the calcium sulfate beads and filled the space after we had reconstituted him with amphotericin B. He tolerated it well, was extubated in the room with negligible blood loss. DESCRIPTION OF PROCEDURE: The patient was brought to the operating room and laid in supine position. General anesthesia was induced and endotracheal intubation was performed. We discussed different types of anesthesia, but he did not do well under just sedation. After appropriate timeout had been called, he had been prepped and draped in usual sterile fashion and we had removed all of his nylon sutures. The wound was opened up. There was no pus. Beads were in place and there was some serous fluid and we sent this and some tissue off that we curetted to the lab for stat Gram stain and a fungal smear. We then removed all the old beads and irrigated out with liters of warm saline with a pulse lavage. After we cleaned all this out, we held pressure to control the bleeding. I did use a curette and freshened up the subcutaneous tissues and deeper tissues, but really there was no biofilm or other evidence of a nonhealing. We then took 20 mL of Stimulan product and mixed it with saline and 200 mg of vancomycin. When this had reached a putty-like consistency, we put it on the mold and allowed the beads to set. We then removed them from the mold. We then implanted them to completely fill all the spaces of the sternal wound. It should be noted the sternum itself was solid. 0 Vicryl was then used in an interrupted fashion and closed the deeper subcutaneous tissues over the beads. We then placed a few beads. We replaced some smaller beads into the subcutaneous tissues and then used 0 nylon in a vertical mattress fashion to reapproximate the skin edges and then used a 2-0 nylon in a simple interrupted fashion between these sutures. This looked quite good. I was quite pleased. We did inject bupivacaine 0.5% into both sides of the incision. He awakened with very little pain. Sterile dressings were applied and we transported him back to the postanesthesia care unit in stable condition. I attest to the content of the Intraoperative Record and any orders documented therein. Any exception s are noted below.
[2018-10-20] MEDS: ACETAMINOPHEN 1,000 MG/100 ML VIAL IV SCH (17:31)
[2018-10-20] MEDS: D5W AND 1/2NSS 1,000 ML IV SCH (17:31)
[2018-10-20] MEDS: METOCLOPRAMIDE HCL INJ 5 MG/ML 2 ML VIAL IV SCH (19:02)
[2018-10-20] MEDS: MoRPHine SULFATE 2 MG/ML CARP IV PRN ×3 (19:10→22:45)
[2018-10-20] MEDS ORDERED: TRAZODONE HCL 50 MG TAB PO SCH (21:00)
[2018-10-20] MEDS: CARVEDILOL 3.125 MG TAB PO SCH (21:14)
[2018-10-20] MEDS: DOCUSATE SODIUM 100 MG CAP PO SCH (21:14)
[2018-10-21] MEDS: OXYCODONE HCL IR 5 MG TAB (IMMEDIATE RELEASE) PO PRN ×2 (00:11→05:50)
[2018-10-21] MEDS: ACETAMINOPHEN 1,000 MG/100 ML VIAL IV SCH ×2 (01:32→10:12)
[2018-10-21] MEDS: METOCLOPRAMIDE HCL INJ 5 MG/ML 2 ML VIAL IV SCH ×2 (01:32→10:13)
[2018-10-21] MEDS: D5W AND 1/2NSS 1,000 ML IV SCH (03:20)
[2018-10-21] MEDS: MoRPHine SULFATE 2 MG/ML CARP IV PRN (07:54)
[2018-10-21] MEDS ORDERED: HYDROXYCHLOROQUINE SULFATE 200 MG TAB PO SCH (09:00)
[2018-10-21] MEDS ORDERED: ENOXAPARIN INJ 40 MG/0.4 ML SYR SQ SCH (09:00)
[2018-10-21] MEDS ORDERED: MULTIVITAMIN TAB PO SCH (09:00)
[2018-10-21] MEDS ORDERED: ATORVASTATIN 40 MG TAB PO SCH (09:00)
[2018-10-21] MEDS ORDERED: ASPIRIN 325 MG ECTAB PO SCH (09:00)
[2018-10-21] MEDS ORDERED: LISINOPRIL 2.5 MG TAB PO SCH (09:00)
[2018-10-21] MEDS ORDERED: CITALOPRAM 20 MG TAB PO SCH (09:00)
[2018-10-21] MEDS ORDERED: FLUCONAZOLE 100 MG TAB PO SCH (09:00)
[2018-10-21] MEDS: DOCUSATE SODIUM 100 MG CAP PO SCH (09:15)
[2018-10-21] MEDS: CARVEDILOL 3.125 MG TAB PO SCH (09:16)
--- NOTE | 2018-10-21 12:26 | Anesthesiology Progress Note ---
Date of Service October 21, 2018 Anesthesia Post Procedure Vital Signs Vital Signs: Temp Pulse Pulse Pulse Pulse Resp BP 10/21/18 07:48 37 C 67 14 119/70 10/21/18 06:23 10/21/18 05:46 76 124/77 10/21/18 03:35 36.6 C 74 18 95/60 L 10/21/18 01:30 36.4 C L 69 18 103/66 10/20/18 23:30 36.7 C 67 18 105/69 10/20/18 22:41 64 10/20/18 21:32 36.5 C 68 24 104/69 10/20/18 21:10 72 110/68 10/20/18 19:40 36.7 C 61 20 122/76 10/20/18 18:33 36.6 C 63 24 124/79 10/20/18 17:28 36.5 C 61 24 120/73 10/20/18 17:04 36.7 C 61 24 120/73 10/20/18 16:36 36.6 C 64 20 121/81 10/20/18 16:15 66 20 122/67 10/20/18 16:00 65 20 114/69 10/20/18 15:50 36.2 C L 69 19 115/62 10/20/18 15:40 64 12 131/62 10/20/18 15:30 66 23 135/68 10/20/18 15:20 66 19 132/86 10/20/18 15:14 36.1 C L 78 22 134/97 Pulse Ox 10/21/18 07:48 92 10/21/18 06:23 93 10/21/18 05:46 10/21/18 03:35 91 10/21/18 01:30 92 10/20/18 23:30 93 10/20/18 22:41 10/20/18 21:32 93 10/20/18 21:10 10/20/18 19:40 97 10/20/18 18:33 97 10/20/18 17:28 97 10/20/18 17:04 97 10/20/18 16:36 99 10/20/18 16:15 100 10/20/18 16:00 100 10/20/18 15:50 98 10/20/18 15:40 100 09/10/19 15:30 100 10/20/18 15:20 100 10/20/18 15:14 100 Notes Mental Status: alert / awake / arousable and participated in evaluation Nausea / Vomiting: adequately controlled Pain: adequately controlled Airway Patency, RR, SpO2: stable & adequate BP & HR: stable & adequate Hydration State: stable & adequate
--- NOTE | 2018-10-23 13:10 | Discharge Summary ---
ADMISSION DIAGNOSES: Sternal wound infection with Tamara. DISCHARGE DIAGNOSES: Sternal wound infection with Tamara. HOSPITAL COURSE: This is a 73-year-old male who is well known to our service. He had undergone multiple sternal wound debridements with antibiotic bead placement in the past. We have been following the patient's wound as an outpatient. After his most recent debridement on 10/06/2018, he was doing well; however, he noted to have some drainage from his incision. He was seen in the office and his incision had some sutures placed to alleviate the drainage, however, despite this modality he continued to have drainage. It should be noted that he was afebrile. His cultures were reviewed and he was noted to have a Tamara from one of his previous cultures. Initially this was felt to be a potential contaminant; however, due to the increased drainage from his wound, this was felt to be a potential contributor of his infection. Therefore, Dr. Saul admitted the patient to the hospital on 10/20/2018, took the patient to the operating room, and performed a sternal wound debridement and washout with implantation of calcium sulfate beads containing amphotericin B and ultimate wound closure. The patient was kept in the hospital overnight for observation and pain control. The following day, the patient was doing well and had an uneventful night in the hospital and was therefore deemed stable for discharge home the following day, which was 10/21/2018. The patient was given written and verbal instructions and he was instructed that the office will call him for a followup appointment in approximately 1 week. The patient expressed his understanding of this and was deemed stable for discharge home on that day.
== END 2018-10-21 13:12 | disposition home health service (06) ==
LOC: 3N 11:36 → ASU 11:36